=== PATIENT | male | born 1955 | race Caucasian/White ===

== ENCOUNTER → 2016-06-21 | Outpatient (CLI) | payer OTHER ==
[2016-06-21 11:20] LABS: ALT 150 U/L (21-72); AST 173 U/L (17-59); Alkaline Phosphatase 72 U/L (38-126); Anion Gap 14 mmol/L; Blood Urea Nitrogen 9 mg/dL (9-20); Calcium 9.7 mg/dL (8.4-10.2); Carbon Dioxide 23 mmol/L (22-30); Chloride 102 mmol/L (98-107); Glucose 135 mg/dL (74-99); Non-African American GFR(MDRD) >60 (>60 ml/min/1.73 sqM); Potassium 3.9 mmol/L (3.5-5.1); Sodium 139 mmol/L (137-145); Total Protein 8.5 g/dL (6.3-8.2)
[2016-06-22 13:38] LABS: Serum Amphetamine Negative; Serum Barbiturates Negative; Serum Benzodiazepine Negative; Serum Cocaine Negative; Serum Methadone Negative; Serum Opiates Negative; Serum Phencyclidine Negative; Serum Propoxyphene Negative; Serum THC (Cannabis) Negative
== END ==
LOC: LABWHC1 09:57
PROVIDERS: ATTEND Nurse Practitioner Psychiatric/Mental Health
DX: F25.1 Schizoaffective disorder, depressive type (principal)
CPT/HCPCS: 36415; 80053; 80307

== ENCOUNTER 2016-11-10 08:21 | Emergency (ER) | payer OTHER ==
[2016-11-10 08:27] VITALS: RESP 18
[2016-11-10] MEDS ORDERED: clonazePAM 0.5 MG TAB PO STA (08:42)
[2016-11-10] MEDS ORDERED: levETIRAcetam 250 MG TAB PO STA (08:42)
--- NOTE | 2016-11-10 08:45 | ED ---
General Adult HPI - General Chief complaint: Wound/Laceration Stated complaint: seizure,laceration Time Seen by Provider: 11/10/16 08:30 Source: patient, RN notes reviewed Mode of arrival: wheelchair Limitations: no limitations - History of Present Illness Initial comments: PAtient is a 61-year-old male with significant past medical history for seizures , who presents emergency room today with a chief complaint of seizure that occurred last approximate 8 PM. He does admit that he fell hit his head on a suturing causing laceration to the back. Does admit that he does have history of seizures tonic-clonic. States he was on medications Dilantin the past but did not like how it made him feel. States currently not taking any medication at this time. He does admit that he was on Keppra and Klonopin in the past which is on his medication list. States he has not been taking these any specific follow-up with his neurologist Dr. Tripp. Patient states his tetanus is up-to-date. He denies any other complaints or associated symptoms. Patient denies any recent fever, chills, shortness of breath, chest pain, back pain, abdominal pain, nausea or vomiting, numbness or tingling, dysuria or hematuria, constipation or diarrhea, headaches or visual changes, or any other complaints. - Related Data Home Medications Medication Instructions Recorded Confirmed Azelastine HCl [Optivar 0.05% 1 drop BOTH EYES BID 03/03/16 03/03/16 Ophth Soln] HYDROcodone/APAP 10-325MG [[place] 1 tab PO Q6H PRN 03/03/16 03/03/16 10-325] Loratadine [Claritin] 10 mg PO DAILY 03/03/16 03/03/16 Simvastatin [Zocor] 20 mg PO HS 03/03/16 03/03/16 Previous Rx's Medication Instructions Recorded Vitamin B Complex 1 each PO DAILY #30 capsule 03/05/16 clonazePAM [KlonoPIN] 0.5 mg PO BID #30 tablet 03/05/16 levETIRAcetam [Keppra] 750 mg PO Q12HR #180 tab 03/05/16 clonazePAM [KlonoPIN] 0.5 mg PO BID #20 tablet 11/10/16 levETIRAcetam [Keppra] 1 tab PO BID #20 tab 11/10/16 Allergies Allergy/AdvReac Type Severity Reaction Status Date / Time No Known Allergies Allergy Verified 11/10/16 08:28 Review of Systems ROS Statement: Those systems with pertinent positive or pertinent negative responses have been documented in the HPI. ROS Other: All systems not noted in ROS Statement are negative. Past Medical History Past Medical History: Hyperlipidemia, Seizure Disorder Additional Past Medical History / Comment(s): CHRONIC BACK PAIN. PATIENT NOT TAKING HIS MEDS (STATES HE DOES NOT NEED THEM). History of Any Multi-Drug Resistant Organisms: None Reported Past Surgical History: Hernia Repair Past Anesthesia/Blood Transfusion Reactions: No Reported Reaction Past Psychological History: No Psychological Hx Reported Smoking Status: Current every day smoker Past Alcohol Use History: Occasional Past Drug Use History: None Reported General Exam - General Exam Comments Initial Comments: General: The patient is awake and alert, in no distress, and does not appear acutely ill. Eye: Pupils are equal, round and reactive to light, extra-ocular movements are intact. No nystagmus. There is normal conjunctiva bilaterally. No signs of icterus. Ears, nose, mouth and throat: There are moist mucous membranes and no oral lesions. Neck: The neck is supple, there is no tenderness or JVD. Cardiovascular: There is a regular rate and rhythm. No murmur, rub or gallop is appreciated. Respiratory: Lungs are clear to auscultation, respirations are non-labored, breath sounds are equal. No wheezes, stridor, rales, or rhonchi. Gastrointestinal: Soft, non-distended, non-tender abdomen without masses or organomegaly noted. There is no rebound or guarding present. No CVA tenderness. Bowel sounds are unremarkable. Musculoskeletal: Normal ROM, no tenderness. Strength 5/5. Sensation intact. Pulses equal bilaterally 2+. Neurological: A&O x 3. CN II-XII intact, There are no obvious motor or sensory deficits. Coordination appears grossly intact. Speech is normal. Skin: Linear laceration running vertically to the back occipital area midline. No active bleeding. Psychiatric: Cooperative, appropriate mood & affect, normal judgment. Limitations: no limitations Course Vital Signs 11/10/16 08:22 Temperature 98.2 F Pulse Rate 99 Respiratory 18 Rate Blood Pressure 135/86 O2 Sat by Pulse 96 Oximetry Procedures - Procedures Initial comment: 2.5 cm laceration running linearly. The laceration was then cleansed with Betadine and irrigated with normal saline. The wound was inspected, and there was no evidence of injury to deep structures. No foreign body was noted in the wound. A total of 3 skin go were placed with good approximation. Medical Decision Making - Medical Decision Making CT negative. Patient's laceration clean) emergency room. Patient will be discharged home advised to return. Advised to return for any other concerns. Patient will be restarted on his doses of Her Klonopin given prescriptions to go home with. Advised follow-up with his neurologist. Disposition Clinical Impression: Laceration, Seizures Disposition: HOME SELF-CARE Condition: Good Instructions: Laceration (ED) Additional Instructions: 08-10 days to have go removed. Please keep area clean with soap and water. Please follow-up with your neurologist takes seizure medications as prescribed. Please also neurologist or family doctor over the next 2 days. Please return to emergency room if any symptoms increase or worsen or for any other concerns. Prescriptions: clonazePAM [KlonoPIN] 0.5 mg PO BID #20 tablet levETIRAcetam [Keppra] 1 tab PO BID #20 tab Referrals: Phuc Bo DO [Primary Care Provider] - 1-2 days Alexis Dejesus MD [STAFF PHYSICIAN] - 1-2 days Time of Disposition: 09:40
--- NOTE | 2016-11-10 09:35 | CT ---
EXAMINATION TYPE: CT brain marvin wo con DATE OF EXAM: 11/10/2016 COMPARISON: Previous CT scan of the brain dated 07/13/1711 HISTORY: Seizure, Laceration CT DLP: Brain 1127.71, Cervical 745.1 mGycm Automated exposure control for dose reduction was used. TECHNIQUE: CT scan of the head and cervical spine are performed without contrast. FINDINGS: BRAIN: There are mild, generalized changes of sulcal prominence and ventriculomegaly, compatible with mild atrophic change. Central structures are midline. There is no evidence of hydrocephalus. No acute focal lesion, mass ef fect or midline shift is seen. I do not see evidence of intracranial blood. Visualized portions of the paranasal sinuses and mastoids are clear. No depressed skull fracture is s een. The zygomatic arches are intact. No nasal fracture is seen. The pterygoid plates are intact. IMPRESSION: NO ACUTE INTRACRANIAL ABNORMALITY. CERVICAL SPINE: There is emphysematous change within the lungs. There is some shotty cervical adenopathy. Prevertebral soft tissues are otherwise normal. 2 body height and alignment are maintained. Atlantoaxial relationships are normal. There is minimal h ypertrophic spondylosis at C5-6 and C6-7. No acute fracture is seen. IMPRESSION: 1. NO ACUTE OSSEOUS LESION. 2. MILD DEGENERATIVE CHANGE. 3. EVIDENCE OF EMPHYSEMATOUS CHANGES WITHIN THE LUNGS.
[2016-11-10 10:08] VITALS: BP 116/71; PULSE 76; TEMP 97.1
== END 2016-11-10 10:08 | disposition home or self-care (01) ==
LOC: EC 08:21
DX: S01.01XA Laceration without foreign body of scalp, initial encounter (principal); G40.909 Epilepsy, unspecified, not intractable, without status epilepticus; E78.5 Hyperlipidemia, unspecified; F17.200 Nicotine dependence, unspecified, uncomplicated; Z79.899 Other long term (current) drug therapy; W01.10XA Fall on same level from slipping, tripping and stumbling with subsequent striking against unspecified object, initial encounter; Y93.01 Activity, walking, marching and hiking
CPT/HCPCS: 12001; 70450; 72125; 99284

== ENCOUNTER 2016-11-12 21:25 | Emergency (ER) | payer OTHER ==
[2016-11-12] MEDS ORDERED: LORazepam 2 MG/ML SYRINGE IM STA (22:13)
--- NOTE | 2016-11-12 22:32 | ED ---
General Adult HPI - General Chief complaint: Head Injury Stated complaint: revisit dizzy, med not working Time Seen by Provider: 11/12/16 21:50 Source: patient, RN notes reviewed Mode of arrival: ambulatory Limitations: no limitations - History of Present Illness Initial comments: This is a 61-year-old male presents who presents emergency department stating that he had a seizure 2 days ago because he was not taking any of his seizure medication. Patient states he sits take his medication today. Patient states he feels as though seizures about to occur. Patient states he hit his back of his head the other day and he had go placed in his head and patient is complaining of dizziness since this morning and states he has a headache. Patient denies any numbness weakness. Patient is unable to explain why he feels like to have a seizure but he states she is 2 months so he knows when they 're coming on. Patient states she's had this sensation since this morning and normally he just lays down and if it occurs it occurs as well as in bed. Patient is a very poor historian he cannot explain why he did not lay down today and he decided to come emergency department. Patient denies any chest pain or breathing shortness of breath. Patient denies any abdominal pain patient denies any recent fever chills or cough. Patient denies any seizure activity today. Patient denies any trauma today. - Related Data Home Medications Medication Instructions Recorded Confirmed Acamprosate Calcium [Campral] 666 mg PO TID 11/10/16 11/10/16 Ergocalciferol [Vitamin D2] 50,000 unit PO Q7D 11/10/16 11/10/16 Lisinopril [Zestril] 5 mg PO DAILY 11/10/16 11/10/16 Multivitamin [Men's Multi-Vitamin] 1 tab PO DAILY 11/10/16 11/10/16 QUEtiapine FUMARATE [Seroquel Xr] 300 mg PO HS 11/10/16 11/10/16 Sertraline [Zoloft] 100 mg PO DAILY 11/10/16 11/10/16 Theratears 1 drop BOTH EYES Q3H PRN 11/10/16 11/10/16 Previous Rx's Medication Instructions Recorded clonazePAM [KlonoPIN] 0.5 mg PO BID #20 tablet 11/10/16 levETIRAcetam [Keppra] 1 tab PO BID #20 tab 11/10/16 Allergies Allergy/AdvReac Type Severity Reaction Status Date / Time No Known Allergies Allergy Verified 11/12/16 21:51 Review of Systems ROS Statement: Those systems with pertinent positive or pertinent negative responses have been documented in the HPI. ROS Other: All systems not noted in ROS Statement are negative. Past Medical History Past Medical History: Hyperlipidemia, Seizure Disorder Additional Past Medical History / Comment(s): CHRONIC BACK PAIN. PATIENT NOT TAKING HIS MEDS (STATES HE DOES NOT NEED THEM). History of Any Multi-Drug Resistant Organisms: None Reported Past Surgical History: Hernia Repair Past Anesthesia/Blood Transfusion Reactions: No Reported Reaction Past Psychological History: No Psychological Hx Reported Smoking Status: Current every day smoker Past Alcohol Use History: Occasional Past Drug Use History: None Reported General Exam - General Exam Comments Initial Comments: GENERAL: Patient is well-developed and well-nourished. Patient is nontoxic and well- hydrated and is in no acute distress. ENT: Neck is soft and supple. No significant lymphadenopathy is noted. Oropharynx is clear. Moist mucous membranes. Neck has full range of motion without eliciting any pain. EYES: The sclera were anicteric and conjunctiva were pink and moist. Extraocular movements were intact and pupils were equal round and reactive to light. Eyelids were unremarkable. PULMONARY: Unlabored respirations. Good breath sounds bilaterally. No audible rales rhonchi or wheezing was noted. CARDIOVASCULAR: There is a regular rate and rhythm without any murmurs gallops or rubs. ABDOMEN: Soft and nontender with normal bowel sounds. No palpable organomegaly was noted. There is no palpable pulsatile mass. SKIN: Patient has a healing scalp LAC which has go. There does not appear to be any signs of infection. NEUROLOGIC: Patient is alert and oriented 2. I believe this is his baseline. Cranial nerves II through XII are grossly intact. Motor and sensory are also intact. Normal speech, volume and content. Symmetrical smile. MUSCULOSKELETAL: Normal extremities with adequate strength and full range of motion. LYMPHATICS: No significant lymphadenopathy is noted PSYCHIATRIC: Normal psychiatric evaluation. Limitations: no limitations Course Vital Signs 11/12/16 21:46 Temperature 98.8 F Pulse Rate 90 Respiratory 18 Rate Blood Pressure 128/87 O2 Sat by Pulse 98 Oximetry Medical Decision Making - Medical Decision Making CT of the head is negative After giving the patient Ativan he stated he felt considerably better and he was comfortable going home and following up with his doctor. Patient states she will start taking his Keppra regularly. Disposition Clinical Impression: History of head injury, History of seizure Disposition: HOME SELF-CARE Condition: Good Instructions: Head Injury (ED) Additional Instructions: Patient should start taking Keppra as prescribed Referrals: Estephania Shannon MD [Primary Care Provider] - 1-2 days Time of Disposition: 23:16
--- NOTE | 2016-11-12 23:06 | CT ---
Exam: CT HEAD Without Contrast History: Pain. Fall 2 days ago with headache. Comparison: None provided. Technique: Continuous axial images of the head were obtained without intravenous contrast. Coronal and sagittal reformatting was provided. Findings: No intracranial hemorrhage or mass effect. Ventricular system and sulci are symmetric. Partially imaged orbits and partially imaged paranasal sinuses are unremarkable. Impression: No intracranial hemorrhage or mass effect. CTDI vol = 60.30 mGy DLP = 1108.40 mGycm One or more of the following dose reduction techniques were used: automated exposure control, adjustment of the mA and/or kV according to patient size, use of iterative reconstruction technique.
[2016-11-12 23:30] VITALS: BP 110/63; PULSE 84; RESP 16; TEMP 97.9
== END 2016-11-12 23:30 | disposition home or self-care (01) ==
LOC: EC 21:25
DX: R42 Dizziness and giddiness (principal); S01.01XD Laceration without foreign body of scalp, subsequent encounter; G40.909 Epilepsy, unspecified, not intractable, without status epilepticus; E78.5 Hyperlipidemia, unspecified; F17.200 Nicotine dependence, unspecified, uncomplicated; Z79.899 Other long term (current) drug therapy
CPT/HCPCS: 99284; 96372; 70450; J2060

== ENCOUNTER → 2017-10-27 | Outpatient (CLI) | payer OTHER ==
[2017-10-27 17:52] LABS: Basophils % (A) 1 %; Eosinophils % (A) 0 %; HCT 41.3 % (39.0-53.0); HGB 13.7 gm/dL (13.0-17.5); Lymphocytes # (A) 1.8 k/uL (1.0-4.8); Lymphocytes % (A) 32 %; MCH 31.9 pg (25.0-35.0); MCHC 33.1 g/dL (31.0-37.0); MCV 96.3 fL (80.0-100.0); Mean Platelet Volume 6.5; Monocytes # (A) 0.5 k/uL (0-1.0); Monocytes % (A) 8 %; Neutrophils % (A) 55 %; Platelet Count 302 k/uL (150-450); RBC 4.29 m/uL (4.30-5.90); RDW 12.5 % (11.5-15.5); WBC 5.5 k/uL (3.8-10.6)
[2017-10-27 18:03] LABS: ALT 94 U/L (21-72); AST 142 U/L (17-59)
== END | disposition home or self-care (01) ==
LOC: LABWHC1 17:09
PROVIDERS: ATTEND Dermatology
DX: B35.1 Tinea unguium (principal)
CPT/HCPCS: 36415; 84450; 84460; 85025

== ENCOUNTER 2018-01-09 14:34 | Observation (INO) | payer OTHER ==
[2018-01-09 15:30] LABS: Basophils % (A) 1 %; Eosinophils % (A) 1 %; HCT 38.1 % (39.0-53.0); HGB 12.5 gm/dL (13.0-17.5); Lymphocytes # (A) 1.9 k/uL (1.0-4.8); Lymphocytes % (A) 44 %; MCH 31.7 pg (25.0-35.0); MCHC 32.7 g/dL (31.0-37.0); MCV 97.1 fL (80.0-100.0); Mean Platelet Volume 6.8; Monocytes # (A) 0.4 k/uL (0-1.0); Monocytes % (A) 10 %; Neutrophils # (A) 1.8 k/uL (1.3-7.7); Neutrophils % (A) 41 %; Platelet Count 209 k/uL (150-450); RBC 3.93 m/uL (4.30-5.90); RDW 11.9 % (11.5-15.5); WBC 4.3 k/uL (3.8-10.6)
[2018-01-09 15:34] LABS: ALT 67 U/L (21-72); AST 141 U/L (17-59); Albumin 4.2 g/dL (3.5-5.0); Alkaline Phosphatase 53 U/L (38-126); Anion Gap 16 mmol/L; Blood Urea Nitrogen 3 mg/dL (9-20); Calcium 9.2 mg/dL (8.4-10.2); Carbon Dioxide 20 mmol/L (22-30); Chloride 103 mmol/L (98-107); Glucose 113 mg/dL (74-99); Potassium 4.2 mmol/L (3.5-5.1); Sodium 139 mmol/L (137-145); Total Bilirubin 0.5 mg/dL (0.2-1.3); Total Protein 7.1 g/dL (6.3-8.2)
[2018-01-09 15:50] LABS: INR 1.3 (<1.2); Partial Thromboplastin Time 26.1 sec (22.0-30.0); Prothrombin Time 11.9 sec (9.0-12.0)
[2018-01-09 15:52] LABS: Creatine Kinase 104 U/L (55-170)
[2018-01-09 16:06] LABS: Creatine Kinase MB 0.9 ng/mL (0.0-2.4); Troponin I <0.012 ng/mL (0.000-0.034)
[2018-01-09] MEDS ORDERED: ASPIRIN 81 MG PO STA (17:37)
[2018-01-09] MEDS ORDERED: NITROGLYCERIN OINT 1 INCH/GM PACKET TOPICAL STA (17:37)
--- NOTE | 2018-01-09 17:39 | ED ---
General Adult HPI - General Chief complaint: Chest Pain Stated complaint: chest pain/numbness in left arm Time Seen by Provider: 01/09/18 17:00 Source: patient, RN notes reviewed Mode of arrival: wheelchair Limitations: no limitations - History of Present Illness Initial comments: Patient is a pleasant 62-year-old male presenting to the emergency Department with complaints of chest discomfort. Symptoms been going on for the past couple of days. Symptoms are not necessarily exertional. Discomfort is mild at this time. Discomfort feels like tightness without radiation however patient has had some numbness of the left arm. Patient has some mild associated dyspnea and diaphoresis. No nausea. No history of similar symptoms previously. No arm weakness. - Related Data Home Medications Medication Instructions Recorded Confirmed Acamprosate Calcium [Campral] 666 mg PO TID 11/10/16 11/10/16 Ergocalciferol [Vitamin D2] 50,000 unit PO Q7D 11/10/16 11/10/16 Lisinopril [Zestril] 5 mg PO DAILY 11/10/16 11/10/16 Multivitamin [Men's Multi-Vitamin] 1 tab PO DAILY 11/10/16 11/10/16 QUEtiapine FUMARATE [Seroquel Xr] 300 mg PO HS 11/10/16 11/10/16 Sertraline [Zoloft] 100 mg PO DAILY 11/10/16 11/10/16 Theratears 1 drop BOTH EYES Q3H PRN 11/10/16 11/10/16 Previous Rx's Medication Instructions Recorded clonazePAM [KlonoPIN] 0.5 mg PO BID #20 tablet 11/10/16 levETIRAcetam [Keppra] 1 tab PO BID #20 tab 11/10/16 Allergies Allergy/AdvReac Type Severity Reaction Status Date / Time No Known Allergies Allergy Verified 01/09/18 14:39 Review of Systems ROS Statement: Those systems with pertinent positive or pertinent negative responses have been documented in the HPI. ROS Other: All systems not noted in ROS Statement are negative. Constitutional: Denies: fever Eyes: Denies: eye pain ENT: Denies: ear pain Respiratory: Denies: cough Cardiovascular: Reports: chest pain Endocrine: Denies: fatigue Gastrointestinal: Denies: abdominal pain Genitourinary: Denies: dysuria Musculoskeletal: Denies: back pain Skin: Denies: rash Neurological: Denies: weakness Past Medical History Past Medical History: Hyperlipidemia, Seizure Disorder Additional Past Medical History / Comment(s): CHRONIC BACK PAIN. PATIENT NOT TAKING HIS MEDS (STATES HE DOES NOT NEED THEM). History of Any Multi-Drug Resistant Organisms: None Reported Past Surgical History: Hernia Repair Past Anesthesia/Blood Transfusion Reactions: No Reported Reaction Past Psychological History: No Psychological Hx Reported Smoking Status: Current every day smoker Past Alcohol Use History: Daily Past Drug Use History: None Reported General Exam Limitations: no limitations General appearance: alert, in no apparent distress Head exam: Present: atraumatic Eye exam: Present: normal appearance, PERRL ENT exam: Present: normal oropharynx Neck exam: Present: normal inspection Respiratory exam: Present: normal lung sounds bilaterally Cardiovascular Exam: Present: regular rate, normal rhythm Expanded Peripheral pulses: 2+: Radial (R), Radial (L), Dorsalis Pedis (R), Dorsalis Pedis (L) GI/Abdominal exam: Present: soft. Absent: tenderness Extremities exam: Present: normal inspection. Absent: pedal edema, calf tenderness Neurological exam: Present: alert. Absent: motor sensory deficit Expanded Motor strength exam: RUE: 5, LUE: 5 Psychiatric exam: Present: normal affect, normal mood Skin exam: Present: normal color Course Vital Signs 01/09/18 01/09/18 14:37 17:27 Temperature 98.2 F Pulse Rate 88 68 Respiratory 20 18 Rate Blood Pressure 146/86 127/71 O2 Sat by Pulse 98 100 Oximetry EKG Findings - EKG Comments: EKG Findings:: Normal sinus rhythm 80. TN 164. QRS 102. QT 376. QTc 433. Right axis. Normal QRS. No acute ST change. Medical Decision Making - Medical Decision Making Case was discussed with Dr. Gale, who will admit for hospital call. Patient was aware of plan. - Lab Data Result diagrams: 01/09/18 14:56 01/09/18 14:56 Lab Results 01/09/18 01/09/18 01/09/18 Range/Units 14:56 14:56 14:56 WBC 4.3 (3.8-10.6) k/uL RBC 3.93 L (4.30-5.90) m/uL Hgb 12.5 L (13.0-17.5) gm/dL Hct 38.1 L (39.0-53.0) % MCV 97.1 (80.0-100.0) fL MCH 31.7 (25.0-35.0) pg MCHC 32.7 (31.0-37.0) g/dL RDW 11.9 (11.5-15.5) % Plt Count 209 (150-450) k/uL Neutrophils % 41 % Lymphocytes % 44 % Monocytes % 10 % Eosinophils % 1 % Basophils % 1 % Neutrophils # 1.8 (1.3-7.7) k/uL Lymphocytes # 1.9 (1.0-4.8) k/uL Monocytes # 0.4 (0-1.0) k/uL Eosinophils # 0.0 (0-0.7) k/uL Basophils # 0.0 (0-0.2) k/uL PT (9.0-12.0) sec INR (<1.2) APTT (22.0-30.0) sec Sodium 139 (137-145) mmol/L Potassium 4.2 (3.5-5.1) mmol/L Chloride 103 (98-107) mmol/L Carbon Dioxide 20 L (22-30) mmol/L Anion Gap 16 mmol/L BUN 3 L (9-20) mg/dL Creatinine 0.55 L (0.66-1.25) mg/dL Est GFR (CKD-EPI)AfAm >90 (>60 ml/min/1.73 sqM) Est GFR (CKD-EPI)NonAf >90 (>60 ml/min/1.73 sqM) Glucose 113 H (74-99) mg/dL Calcium 9.2 (8.4-10.2) mg/dL Magnesium (1.6-2.3) mg/dL Total Bilirubin 0.5 (0.2-1.3) mg/dL AST 141 H (17-59) U/L ALT 67 (21-72) U/L Alkaline Phosphatase 53 (38-126) U/L Total Creatine Kinase 104 (55-170) U/L CK-MB (CK-2) 0.9 (0.0-2.4) ng/mL CK-MB (CK-2) Rel Index 0.9 Troponin I <0.012 (0.000-0.034) ng/mL Total Protein 7.1 (6.3-8.2) g/dL Albumin 4.2 (3.5-5.0) g/dL 01/09/18 01/09/18 Range/Units 14:56 14:56 WBC (3.8-10.6) k/uL RBC (4.30-5.90) m/uL Hgb (13.0-17.5) gm/dL Hct (39.0-53.0) % MCV (80.0-100.0) fL MCH (25.0-35.0) pg MCHC (31.0-37.0) g/dL RDW (11.5-15.5) % Plt Count (150-450) k/uL Neutrophils % % Lymphocytes % % Monocytes % % Eosinophils % % Basophils % % Neutrophils # (1.3-7.7) k/uL Lymphocytes # (1.0-4.8) k/uL Monocytes # (0-1.0) k/uL Eosinophils # (0-0.7) k/uL Basophils # (0-0.2) k/uL PT 11.9 (9.0-12.0) sec INR 1.3 H (<1.2) APTT 26.1 (22.0-30.0) sec Sodium (137-145) mmol/L Potassium (3.5-5.1) mmol/L Chloride (98-107) mmol/L Carbon Dioxide (22-30) mmol/L Anion Gap mmol/L BUN (9-20) mg/dL Creatinine (0.66-1.25) mg/dL Est GFR (CKD-EPI)AfAm (>60 ml/min/1.73 sqM) Est GFR (CKD-EPI)NonAf (>60 ml/min/1.73 sqM) Glucose (74-99) mg/dL Calcium (8.4-10.2) mg/dL Magnesium 1.5 L (1.6-2.3) mg/dL Total Bilirubin (0.2-1.3) mg/dL AST (17-59) U/L ALT (21-72) U/L Alkaline Phosphatase (38-126) U/L Total Creatine Kinase (55-170) U/L CK-MB (CK-2) (0.0-2.4) ng/mL CK-MB (CK-2) Rel Index Troponin I (0.000-0.034) ng/mL Total Protein (6.3-8.2) g/dL Albumin (3.5-5.0) g/dL - Radiology Data Interpreted by me: Chest x-ray shows no acute process. There does appear to be possible nodule right lower lobe Disposition Clinical Impression: Chest pain Disposition: ADMITTED IP TO THIS HOSP Is patient prescribed a controlled substance at d/c from ED?: No [facility]errals: [facility] [Primary Care Provider] - 1-2 days Decision Time: 18:28
[2018-01-09] MEDS ORDERED: NITROGLYCERIN SL TABS 0.4 MG TAB SUBLINGUAL PRN (18:28)
--- NOTE | 2018-01-09 19:08 | XR ---
EXAMINATION: XR chest 2V DATE AND TIME: 01/09/2018 5:52 PM CLINICAL INDICATION: Chest Pain TECHNIQUE: PA and lateral COMPARISON: 09/12/2009 FINDINGS: The lungs are clear. 1 cm calcification at the right lung base redemonstrated consistent with healed granuloma. The pleural spaces are negative. The cardiac silhouette is not enlarged. The remainder of the mediastinal silhouette is unremarkable. The skeletal structures and soft tissues are negative for acute findings. IMPRESSION: NO ACUTE RADIOGRAPHIC PROCESS.
[2018-01-09] MEDS ORDERED: QUEtiapine 200 MG TAB PO SCH (21:00)
[2018-01-09] MEDS ORDERED: SERTRALINE 100 MG TAB PO SCH (21:00)
[2018-01-09] MEDS ORDERED: ACETAMINOPHEN TAB 325 MG TAB PO PRN (21:46)
[2018-01-09] MEDS ORDERED: NALOXONE 0.4 MG/ML 1 ML VIAL IV PRN (21:46)
[2018-01-09 21:58] LABS: Creatine Kinase 93 U/L (55-170)
[2018-01-09] MEDS ORDERED: DIGOXIN 250 MCG/ML 2 ML AMP IVP ONE (22:07)
[2018-01-09 22:11] LABS: Creatine Kinase MB 1.5 ng/mL (0.0-2.4); Troponin I <0.012 ng/mL (0.000-0.034)
[2018-01-09] MEDS ORDERED: LORazepam 2 MG/ML INJ IV PRN ×3 (22:12)
--- NOTE | 2018-01-09 22:23 | P.HPIM ---
History of Present Illness H&P Date: 01/09/18 Chief Complaint: Chest pain Patient appears tired during his H&P. Patient appears demotivated to answer questions at this time. 62-year-old male with PMH of schizophrenia and SZ disorder presents to the ED for chest pain. Patient states his chest pain began yesterday as he was cleaning the house. Patient reports the pain to be intermittent, 5 out of 10 in severity, left-sided and sharp in nature. His chest pain was associated with lightheadedness, shortness of breath, diaphoresis and palpitations. He denies any radiation of pain. He denied any alleviating or aggravating factors. His chest pain persisted until today, which prompted him to come to the ED. He denies any headache, lower extremity edema, nausea, vomiting, fever , cough, palpitations, changes in urination or bowel habits. No changes in appetite or weight. He denies any numbness, weakness or tingling of the extremities. Of note, patient has a history of seizures, last seizure was one month ago, patient reports taking himself off of medication. In the ED, CBC showed hemoglobin of 12.5 and hematocrit of 30.1. His INR is 1.3. CMP shows a bicarbonate of 20, glucose of 113, magnesium of 1.5, AST of 141. Initial troponin was less than 0.012, EKG showing normal sinus rhythm. Chest x-ray was negative. Patient is admitted to rule out acute coronary syndrome. Cardiology on consult. Review of Systems All systems: negative Past Medical History Past Medical History: Hyperlipidemia, Seizure Disorder Additional Past Medical History / Comment(s): CHRONIC BACK PAIN. 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 History of Any Multi-Drug Resistant Organisms: None Reported Past Surgical History: Hernia Repair Past Anesthesia/Blood Transfusion Reactions: No Reported Reaction Smoking Status: Current every day smoker - Past Family History Mother Family Medical History: No Reported History Father Family Medical History: No Reported History Medications and Allergies Home Medications Medication Instructions Recorded Confirmed Type Ergocalciferol [Vitamin D2] 50,000 unit PO Q14D 11/10/16 01/09/18 History Multivitamin [Men's Multi-Vitamin] 1 tab PO DAILY 11/10/16 01/09/18 History Sertraline [Zoloft] 100 mg PO HS 11/10/16 01/09/18 History Theratears 1 drop BOTH EYES Q3H PRN 11/10/16 01/09/18 History Eucerin Cream 1 applic TOPICAL DAILY 01/09/18 01/09/18 History Lisinopril [Prinivil] 10 mg PO DAILY 01/09/18 01/09/18 History Magnesium Oxide [Mag-Ox] 400 mg PO DAILY 01/09/18 01/09/18 History Ondansetron HCl [Zofran] 4 mg PO DAILY PRN 01/09/18 01/09/18 History QUEtiapine FUMARATE [SEROquel] 600 mg PO HS 01/09/18 01/09/18 History Allergies Allergy/AdvReac Type Severity Reaction Status Date / Time No Known Allergies Allergy Verified 01/09/18 18:35 Physical Exam Vitals: Vital Signs Temp Pulse Pulse Resp BP BP Pulse Ox 01/09/18 20:28 98.1 F 68 16 136/73 98 01/09/18 20:12 98.0 F 66 16 112/68 96 01/09/18 20:00 16 01/09/18 17:27 68 18 127/71 100 01/09/18 14:37 98.2 F 88 20 146/86 98 Intake and Output 01/09/18 01/09/18 01/09/18 06:59 14:59 22:59 Other: Voiding Method Toilet Weight 67.132 kg 67 kg General: [non toxic], [no distress], [appears at stated age], [uncooperative with questions giving one-word answers] Derm: [warm], [dry] Head: [atraumatic], [normocephalic], [symmetric] Eyes: [EOMI], [no lid lag], [anicteric sclera] Mouth: [no lip lesion], [mucus membranes moist] Cardiovascular: [S1S2 reg], [no murmur], [positive posterior tibial pulse bilateral], Lungs: [CTA bilateral], [no rhonchi, no rales] , [no accessory muscle use] Abdominal: [soft], [ nontender to palpation], [no guarding], [no appreciable organomegaly] Ext: [no gross muscle atrophy], [no edema], [no contractures] Psych: [Alert], [oriented], [appropriate affect] Results CBC & Chem 7: 01/09/18 14:56 01/09/18 14:56 Labs: Abnormal Lab Results - Last 24 Hours (Table) 01/09/18 01/09/18 01/09/18 Range/Units 14:56 14:56 14:56 RBC 3.93 L (4.30-5.90) m/uL Hgb 12.5 L (13.0-17.5) gm/dL Hct 38.1 L (39.0-53.0) % INR 1.3 H (<1.2) Carbon Dioxide 20 L (22-30) mmol/L BUN 3 L (9-20) mg/dL Creatinine 0.55 L (0.66-1.25) mg/dL Glucose 113 H (74-99) mg/dL Magnesium (1.6-2.3) mg/dL AST 141 H (17-59) U/L 01/09/18 Range/Units 14:56 RBC (4.30-5.90) m/uL Hgb (13.0-17.5) gm/dL Hct (39.0-53.0) % INR (<1.2) Carbon Dioxide (22-30) mmol/L BUN (9-20) mg/dL Creatinine (0.66-1.25) mg/dL Glucose (74-99) mg/dL Magnesium 1.5 L (1.6-2.3) mg/dL AST (17-59) U/L Chest x-ray: report reviewed (negative for acute process) Thrombosis Risk Factor Assmnt - DVT/VTE Prophylaxis DVT/VTE Prophylaxis: Pharmacologic Prophylaxis ordered - Choose All That Apply Any of the Below Risk Factors Present?: Yes Each Factor Represents 1 point: Age 41-60 years Thrombosis Risk Factor Assessment Total Risk Factor Score: 1 Thrombosis Risk Factor Assessment Level: Low Risk Assessment and Plan Assessment: Assessment and Plan 1. Chest pain: Unreliable history. Troponin < 0.012 x 1, EKG shows NSR. CXR negative. Tylenol and Nitrostat PRN for pain management. Continue ASA 81 mg PO QD. Trend 2 more sets of Trop/EKG to r/o ACS. FU Echo, Cardiology 2. SVT: Seen on Telemetry when walking to the bathroom. Possibly due to EtOH and hypoMg. Will replace Mg. Keep Mg > 2 and K > 4. Transfer patient to [facility] for Digoxin IV. FU Echo, TSH, Cardiology consult 3. EtOH abuse: Patient denies but previous reports and smell of EtOH per RN. CIAR protocol. Ativan 2 mg IV Q4 PRN for CIWA > 8. Start Thiamine 100 mg PO BID , MVI 1 tab PO QD, FA 1 mg PO QD. Fall precautions. 4. Anemia: Hg 12.5 Hct 38.1 MCV 97.1. Macrocytosis likely related to EtOH abuse. Daily CBC. FU Iron studies, Ferritin, B12 and Folate. 5. Supratherapeutic INR: INR 1.3. Likely related to EtOH abuse. Daily INR. 6. Elevated transaminase: AST 141. Likely related to EtOH abuse. Daily CMP. 7. Decreased HCO3: HCO3 20. Likely metabolic acidosis related to EtOH abuse. Daily CMP. 8. HTN: BP 136/73. Continue Lisinopril 10 mg PO QD. Monitor vitals, adjust medication as necessary. 9. Psyc: Schizophrenia and Depression? Unknown, patient unreliable. Continue Seroquel 600 mg PO QHS, Sertraline 100 mg PO QHS. 10. DVT Prophylaxis: Heparin 5000 units SUBCUT BID. Pepcid 20 mg PO BID. Plans to r/o ACS. Patient to move to [facility] for SVT for closer monitoring and IV Digoxin. [facility] protocol for EtOH abuse. FU Cardiology for further intervention.
[2018-01-09 22:28] LABS: Cholesterol 267 mg/dL (<200); Triglycerides 110 mg/dL (<150)
[2018-01-09 22:35] LABS: LDL Cholesterol,Calculated 105 mg/dL (0-99)
[2018-01-09 22:36] LABS: HDL Cholesterol 140 mg/dL (40-60)
[2018-01-09] MEDS: THIAMINE 100 MG TAB PO SCH (22:38)
[2018-01-09] MEDS: METOPROLOL SUCCINATE (ER) 25 MG TAB.ER.24H PO SCH (22:50)
[2018-01-09] MEDS: MAGNESIUM SULFATE-D5W PMX 1 GM in DEXTROSE/WATER 1 100ML.BAG IVPB SCH ×2 (22:51→23:57)
[2018-01-09 23:32] VITALS: RESP 16
[2018-01-10] MEDS: NITROGLYCERIN OINT 1 INCH/GM PACKET TOPICAL SCH ×2 (00:19→05:16)
[2018-01-10] MEDS: MAGNESIUM SULFATE-D5W PMX 1 GM in DEXTROSE/WATER 1 100ML.BAG IVPB SCH ×2 (01:01→02:05)
[2018-01-10 02:48] LABS: Basophils % (A) 1 %; Eosinophils # (A) 0.1 k/uL (0-0.7); Eosinophils % (A) 3 %; HCT 36.4 % (39.0-53.0); HGB 11.9 gm/dL (13.0-17.5); Lymphocytes # (A) 1.5 k/uL (1.0-4.8); Lymphocytes % (A) 44 %; MCH 32.2 pg (25.0-35.0); MCHC 32.7 g/dL (31.0-37.0); MCV 98.6 fL (80.0-100.0); Mean Platelet Volume 6.8; Monocytes # (A) 0.2 k/uL (0-1.0); Monocytes % (A) 6 %; Neutrophils # (A) 1.5 k/uL (1.3-7.7); Neutrophils % (A) 45 %; Platelet Count 176 k/uL (150-450); RBC 3.69 m/uL (4.30-5.90); RDW 11.9 % (11.5-15.5); WBC 3.4 k/uL (3.8-10.6)
[2018-01-10 02:54] LABS: INR 1.3 (<1.2); Prothrombin Time 12.3 sec (9.0-12.0)
[2018-01-10 02:58] LABS: ALT 61 U/L (21-72); AST 111 U/L (17-59); Albumin 3.8 g/dL (3.5-5.0); Alkaline Phosphatase 61 U/L (38-126); Anion Gap 12 mmol/L; Blood Urea Nitrogen 7 mg/dL (9-20); Calcium 9.1 mg/dL (8.4-10.2); Carbon Dioxide 23 mmol/L (22-30); Chloride 105 mmol/L (98-107); Glucose 100 mg/dL (74-99); Magnesium 2.3 mg/dL (1.6-2.3); Potassium 3.9 mmol/L (3.5-5.1); Sodium 140 mmol/L (137-145); Total Bilirubin 0.3 mg/dL (0.2-1.3); Total Protein 6.5 g/dL (6.3-8.2)
[2018-01-10 03:01] LABS: Creatine Kinase 82 U/L (55-170)
[2018-01-10 03:14] LABS: Creatine Kinase MB 0.7 ng/mL (0.0-2.4); Troponin I <0.012 ng/mL (0.000-0.034)
[2018-01-10 03:58] LABS: T4, Free (Free Thyroxine) 0.83 ng/dL (0.78-2.19)
[2018-01-10] MEDS ORDERED: ASPIRIN 325 MG TAB PO SCH (09:00)
[2018-01-10] MEDS ORDERED: FAMOTIDINE 20 MG TAB PO SCH (09:00)
[2018-01-10] MEDS ORDERED: HEPARIN SODIUM,PORCINE 5,000 UNIT/ML 1 ML VIAL SQ SCH (09:00)
[2018-01-10] MEDS ORDERED: LISINOPRIL 10 MG TAB PO SCH (09:00)
--- NOTE | 2018-01-10 10:33 | ECHOF ---
Referral Reason:SVT, CP MEASUREMENTS -------- HEIGHT: 167.6 cm WEIGHT: 66.7 kg BP: 120/68 RVIDd: 2.7 cm (< 3.3) IVSd: 1.2 cm (0.6 - 1.1) LVIDd: 3.9 cm (3.9 - 5.3) LVPWd: 1.2 cm (0.6 - 1.1) IVSs: 1.7 cm LVIDs: 2.6 cm LVPWs: 1.7 cm LA Diam: 2.9 cm (2.7 - 3.8) LAESV Index (A-L): 23.08 ml/m Ao Diam: 3.4 cm (2.0 - 3.7) AV Cusp: 2.5 cm (1.5 - 2.6) MV EXCURSION: 20.304 mm (> 18.000) MV EF SLOPE: 130 mm/s (70 - 150) EPSS: 0.4 cm MV E Yovany: 0.77 m/s MV DecT: 196 ms MV A Yovany: 0.72 m/s MV E/A Ratio: 1.08 RAP: 5.00 mmHg RVSP: 22.12 mmHg FINDINGS -------- Sinus rhythm. This was a technically good study. The left ventricular size is normal. There is borderline concentric left ventricular hypertrophy. Overall left ventricular systolic function is normal with, an EF between 55 - 60 %. The right ventricle is normal in size. Normal LA size by volume 22+/-6 ml/m2. The right atrium is normal in size. The aortic valve is trileaflet and appears structurally normal. There is trace to mild mitral regurgitation. Mild tricuspid regurgitation present. Right ventricular systolic pressure is normal at < 35 mmHg. Trace/mild (physiologic) pulmonic regurgitation. The aortic root size is normal. Normal inferior vena cava with normal inspiratory collapse consistent with estimated right atrial pre ssure of 5 mmHg. There is no pericardial effusion. CONCLUSIONS -------- 1. Sinus rhythm. 2. This was a technically good study. 3. The left ventricular size is normal. 4. There is borderline concentric left ventricular hypertrophy. 5. Overall left ventricular systolic function is normal with, an EF between 55 - 60 %. 6. The right ventricle is normal in size. 7. Normal LA size by volume 22+/-6 ml/m2. 8. The right atrium is normal in size. 9. The aortic valve is trileaflet and appears structurally normal. 10. There is trace to mild mitral regurgitation. 11. Mild tricuspid regurgitation present. 12. Right ventricular systolic pressure is normal at < 35 mmHg. 13. Trace/mild (physiologic) pulmonic regurgitation. 14. The aortic root size is normal. 15. Normal inferior vena cava with normal inspiratory collapse consistent with estimated right atrial pressure of 5 mmHg. 16. There is no pericardial effusion. PICKER TENDER: Keesha Fleming RDCS
[2018-01-10] MEDS: THIAMINE 100 MG TAB PO SCH (10:41)
[2018-01-10] MEDS: METOPROLOL SUCCINATE (ER) 25 MG TAB.ER.24H PO SCH (10:41)
[2018-01-10 11:13] VITALS: BP 154/82; PULSE 77; TEMP 98.7
[2018-01-10] MEDS ORDERED: MULTIVITAMINS, THERA 1 EACH TAB PO SCH (12:00)
[2018-01-10] MEDS ORDERED: FOLIC ACID 1 MG TAB PO SCH (12:00)
--- NOTE | 2018-01-10 12:00 | P.CRDCN ---
History of Present Illness History of present illness: Mr. Echavarria is a pleasant 62-year-old female past medical history significant for dyslipidemia, chronic nicotine dependence, alcohol use and seizure disorder. He denies history of coronary artery disease, hypertension or diabetes mellitus. We have been asked to see her in consultation for chest pain. He developed a sharp stabbing pain in the left precordial region while he was sitting down watching a movie. The pain radiated around under the breast. He felt mildly lightheaded as well. His left hand felt tingly. He denies radiation of the pain to the arm, back, neck or jaw. Denies shortness of breath , palpitations, nausea, vomiting or diaphoresis. Last night around 2200 he went into what appears to be sinus tachycardia with rate of 150-160, rhythm was regular with P-waves noted before each narrow complex QRS. He does not recall this episode. Orders were obtained for digoxin 0.25 mg and toprol 25 mg He denies having symptoms of palpitations, dizziness, chest pain or shortness of breath at that time. No further arrhythmias noted. EKG on arrival reveals sinus mechanism with no acute ST or T wave abnormalities noted. Chest x-ray is negative for an acute cardiopulmonary process. Laboratory data reviewed, hemoglobin 11.9, platelets 176, INR 1.3, sodium 140, potassium 3.9, magnesium 2.3, cardiac enzymes negative 3, LDL 105, HDL 140, triglycerides 1 time a total cholesterol 267, TSH 5.96 and free T4 0.83. Current cardiac medications include lisinopril 10 mg daily. He also takes Zoloft and Seroquel. Review of Systems At the time of my exam: CONSTITUTIONAL: Denies fever. Denies chills. EYES: Denies blurred vision. Denies vision changes. Denies eye pain. EARS, NOSE, MOUTH & THROAT: Denies headache. Denies sore throat. Denies ear pain. CARDIOVASCULAR: Denies chest pain. Denies shortness of breath. Denies orthopnea. Denies PND. Denies palpitations. RESPIRATORY: Denies cough. GASTROINTESTINAL: Denies abdominal pain. Denies diarrhea. Denies constipation. Denies nausea. Denies vomiting. MUSCULOSKELETAL: Denies myalgias. INTEGUMENTARY: Denies pruitis. Denies rash. NEUROLOGIC: Denies numbness. Denies tingling. Denies weakness. PSYCHIATRIC: Denies anxiety. Denies depression. ENDOCRINE: Denies fatigue. Denies weight change. Denies polydipsia. Denies polyurina. GENITOURINARY: Denies burning, hematuria or urgency with micturation. HEMATOLOGIC: Denies history of anemia. Denies bleeding. Past Medical History Past Medical History: Hyperlipidemia, Seizure Disorder Additional Past Medical History / Comment(s): CHRONIC BACK PAIN. 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 History of Any Multi-Drug Resistant Organisms: None Reported Past Surgical History: Hernia Repair Past Anesthesia/Blood Transfusion Reactions: No Reported Reaction Smoking Status: Current every day smoker - Past Family History Mother Family Medical History: No Reported History Father Family Medical History: No Reported History Medications and Allergies Home Medications Medication Instructions Recorded Confirmed Type Ergocalciferol [Vitamin D2] 50,000 unit PO Q14D 11/10/16 01/09/18 History Multivitamin [Men's Multi-Vitamin] 1 tab PO DAILY 11/10/16 01/09/18 History Sertraline [Zoloft] 100 mg PO HS 11/10/16 01/09/18 History Theratears 1 drop BOTH EYES Q3H PRN 11/10/16 01/09/18 History Eucerin Cream 1 applic TOPICAL DAILY 01/09/18 01/09/18 History Lisinopril [Prinivil] 10 mg PO DAILY 01/09/18 01/09/18 History Magnesium Oxide [Mag-Ox] 400 mg PO DAILY 01/09/18 01/09/18 History Ondansetron HCl [Zofran] 4 mg PO DAILY PRN 01/09/18 01/09/18 History QUEtiapine FUMARATE [SEROquel] 600 mg PO HS 01/09/18 01/09/18 History Allergies Allergy/AdvReac Type Severity Reaction Status Date / Time No Known Allergies Allergy Verified 01/09/18 18:35 Physical Exam Vitals: Vital Signs Temp Pulse Pulse Resp BP BP Pulse Ox 01/10/18 07:47 98.6 F 71 16 116/69 99 01/10/18 04:00 16 01/10/18 02:59 98.7 F 79 16 120/68 98 01/10/18 00:00 16 01/09/18 23:30 98.1 F 129 H 16 107/63 94 L 01/09/18 22:45 123 H 18 111/71 97 01/09/18 22:10 123 H 18 103/63 96 01/09/18 22:00 112 H 18 88/53 96 01/09/18 20:28 98.1 F 68 16 136/73 98 01/09/18 20:12 98.0 F 66 16 112/68 96 01/09/18 20:00 16 01/09/18 17:27 68 18 127/71 100 01/09/18 14:37 98.2 F 88 20 146/86 98 Intake and Output 01/09/18 01/10/18 01/10/18 22:59 06:59 14:59 Other: Voiding Method Toilet Urinal # Voids 2 Weight 67 kg Blood pressure 120/68 heart rate 79 afebrile maintaining oxygen saturation on room air GENERAL: This is a 62-year-old male in no apparent distress at the time of my examination. HEENT: Head is atraumatic, normocephalic. Pupils are equal, round. Sclerae anicteric. Conjunctivae are clear. Mucous membranes of the mouth are moist. Neck is supple. There is no jugular venous distention. No carotid bruit is heard. LUNGS: Clear to auscultation no wheezes, rales or rhonchi. No chest wall tenderness is noted on palpation or with deep breathing. HEART: Regular rate and rhythm without murmurs, rubs or gallops. S1 and S2 heard. ABDOMEN: Soft, nontender. Bowel sounds are heard. No organomegaly noted. EXTREMITIES: No evidence of peripheral edema and no calf tenderness noted. VASCULAR: Radial and dorsalis pedis pulses palpated, no evidence of clubbing. NEUROLOGIC: Patient is awake, alert and oriented x3. Results 01/10/18 02:27 01/10/18 02:27 Cardiac Enzymes 01/09/18 01/09/18 01/09/18 Range/Units 14:56 14:56 21:20 AST 141 H (17-59) U/L CK-MB (CK-2) 0.9 1.5 (0.0-2.4) ng/mL Troponin I <0.012 <0.012 (0.000-0.034) ng/mL 01/10/18 01/10/18 Range/Units 02:27 02:27 AST 111 H (17-59) U/L CK-MB (CK-2) 0.7 (0.0-2.4) ng/mL Troponin I <0.012 (0.000-0.034) ng/mL Coagulation 01/09/18 01/10/18 Range/Units 14:56 02:27 PT 11.9 12.3 H (9.0-12.0) sec APTT 26.1 (22.0-30.0) sec Lipids 01/09/18 01/10/18 Range/Units 14:56 02:27 Triglycerides 110 Cancelled (<150) mg/dL Cholesterol 267 H Cancelled (<200) mg/dL HDL Cholesterol 140 H Cancelled (40-60) mg/dL CBC 01/09/18 01/10/18 Range/Units 14:56 02:27 WBC 4.3 3.4 L (3.8-10.6) k/uL RBC 3.93 L 3.69 L (4.30-5.90) m/uL Hgb 12.5 L 11.9 L (13.0-17.5) gm/dL Hct 38.1 L 36.4 L (39.0-53.0) % Plt Count 209 176 (150-450) k/uL Comprehensive Metabolic Panel 01/09/18 01/10/18 Range/Units 14:56 02:27 Sodium 139 140 (137-145) mmol/L Potassium 4.2 3.9 (3.5-5.1) mmol/L Chloride 103 105 (98-107) mmol/L Carbon Dioxide 20 L 23 (22-30) mmol/L BUN 3 L 7 L (9-20) mg/dL Creatinine 0.55 L 0.57 L (0.66-1.25) mg/dL Glucose 113 H 100 H (74-99) mg/dL Calcium 9.2 9.1 (8.4-10.2) mg/dL AST 141 H 111 H (17-59) U/L ALT 67 61 (21-72) U/L Alkaline Phosphatase 53 61 (38-126) U/L Total Protein 7.1 6.5 (6.3-8.2) g/dL Albumin 4.2 3.8 (3.5-5.0) g/dL Current Medications Generic Name Dose Route Start Last Admin Trade Name Freq PRN Reason Stop Dose Admin Acetaminophen 650 mg 01/09/18 21:46 Tylenol Tab PO Q6HR PRN Mild Pain or Fever > 100.5 Aspirin 325 mg 01/10/18 09:00 Aspirin PO DAILY [facility] Famotidine 20 mg 01/10/18 09:00 Pepcid PO BID [facility] Folic Acid 1 mg 01/10/18 12:00 Folic Acid PO DAILY@1200 [facility] Heparin Sodium (Porcine) 5,000 unit 01/10/18 09:00 Heparin SQ Q12HR [facility] Lisinopril 10 mg 01/10/18 09:00 Zestril PO DAILY [facility] Lorazepam 1 mg 01/09/18 22:12 Ativan IV Q2HR PRN CIWA 8 or 9 Lorazepam 1 mg 01/09/18 22:12 Ativan IV Q1HR PRN CIWA 10 to 15 Lorazepam 2 mg 01/09/18 22:12 Ativan IV 01/11/18 22:12 Q10M PRN CIWA 16 or higher Metoprolol Succinate 25 mg 01/09/18 22:15 01/09/18 22:50 Toprol Xl PO 25 mg DAILY [facility] Administration Multivitamins 1 each 01/10/18 12:00 Theragran PO DAILY@1200 [facility] Naloxone HCl 0.2 mg 01/09/18 21:46 Narcan IV Q2M PRN Opioid Reversal Nitroglycerin 1 inch 01/10/18 00:00 01/10/18 05:16 Nitro-Bid Oint TOPICAL Not Given Q6HR [facility] Nitroglycerin 0.4 mg 01/09/18 18:28 Nitrostat SUBLINGUAL Q5M PRN Chest Pain Quetiapine Fumarate 600 mg 01/09/18 21:00 01/09/18 21:00 Seroquel PO 600 mg HS IFTIKHAR Administration Sertraline HCl 100 mg 01/09/18 21:00 01/09/18 21:00 Zoloft PO 100 mg HS IFTIKHAR Administration Sodium Chloride 10 ml 01/09/18 21:00 01/09/18 21:01 Saline Flush IV 10 ml BID IFTIKHAR Administration Thiamine HCl 100 mg 01/09/18 17:00 01/09/18 22:38 Vitamin B-1 PO 100 mg BID@1200,1700 [facility] Administration Intake and Output 09/17/18 09/18/18 09/18/18 22:59 06:59 14:59 Other: Voiding Method Toilet Urinal # Voids 2 Weight 67 kg 01/10/18 02:27 01/10/18 02:27 Assessment and Plan Assessment: ASSESSMENT Chest pain, atypical. An acute coronary event has been ruled out no EKG evidence of ischemia and negative cardiac enzymes. Sinus tachycardia, unknown etiology Hypomagnesemia, replaced Hypertension Dyslipidemia Elevated liver enzymes Chronic nicotine dependence Regular alcohol use PLAN 2-D echocardiogram and Doppler study has been obtained and will be reviewed. Continue replacing magnesium per protocol. Perform stress echocardiogram to assess her stress induced cardiac ischemia. Recommend lifestyle modifications and smoking cessation as well as cessation of regular alcohol use. We will not start a statin at this time secondary to elevated liver enzymes. Sinus tachycardia secondary to an underlying process, further investigation per primary care team for underlying cause. Thyroid normal. May be related to hypomagnesemia. If stress test is normal he is stable from a cardiac perspective. Nurse Practitioner note has been reviewed, I agree with a documented findings and plan of care. Patient was seen and examined.
--- NOTE | 2018-01-10 12:02 | P.STRESS ---
- Stress Test Note Stress Test Results/Findings: Exam Performed: stress echo exercise Exam Date: 01/10/18 Reason for Exam: CP Height: 5 ft 6 in Weight: 66.678 kg Protocol: Stress Echo Stage: I Duration of Exercise: 3 Resting Heart Rate: 76 Resting Blood Pressure: 142/98 Maximum Achieved Heart Rate: 141 Maximum Achieved Blood Pressure: 158/83 85% PMHR: 136 100% PMHR: 160 METS: 4.4 Technologist Comment: Stress Test Results/Findings: This is a 62-year-old gentleman who was admitted to the hospital with chest pain. EKGs and cardiac enzymes were negative. Based on EKG showed a sinus rhythm with normal DC interval and QRS duration. Blood pressure test is 140/98 , pulse rate of 76. Patient walked for about 3 minutes achieving a maximal to the 141 with a blood pressure 158/83. EKGs taken during or after the x-ray did not reveal any changes to suggest ischemia. Echo data: Baseline echo images show normal wall motion and thickening. Exercise echo images showed augmentation of wall motion and thickening in all segments. Final impression: #1. Limited excess capacity #2. Negative stress test #3. Negative stress echo.
[2018-01-10 13:43] LABS: Iron Saturation 49.03 (15.00-50.00)
[2018-01-10 13:56] LABS: Folate, Serum 15.1 ng/mL
--- NOTE | 2018-01-10 19:25 | P.DS ---
Providers Date of admission: 01/09/18 18:28 Expected date of discharge: 01/10/18 Attending physician: Benson Gale MD Consults: 01/09/18 18:28 Consult Physician Urgent Consulting Provider: Charlie Alamo Consult Reason/Comments: cp Do you want consulting provider notified?: Yes Primary care physician: [facility] Hospital Course: The patient is a 62-year-old male with a past medical history of schizophrenia, hyperlipidemia, and seizure disorder who presented to the ED for complaints of chest pain of one-day duration. The patient's pain was associated with lightheadedness, shortness of breath, palpitations, and diaphoresis. His EKG was unremarkable and showed normal sinus rhythm, and troponin was less than 0.012. The patient was subsequently placed under observation to rule out ACS. Cardiology was consulted and the patient underwent an echocardiogram stress test. During the stress test, the patient walked for 3 minutes and achieved a maximum 141 pulse with no EKG changes to suggest ischemia. The echocardiogram images failed to show any signs of ischemia. Patient's echocardiogram showed normal systolic LV function with EF of 55-60%. The patient is thereby stable, and ready for discharge home with follow-up with cardiology as an outpatient. Physical Examination General: Awake, alert, in no acute distress HEENT: NC/AT, anicteric sclerae, moist conjunctiva, no lid-lag, PERRLA, oropharynx clear, no erythema, exudates Cardiovascular: S1/S2 wnl, no murmurs, rubs, or gallops Lungs: Clear to auscultation, normal respiratory effort, no accessory muscle use Abdominal: Soft, nontender, non-distended, no guarding, rebound, or rigidity, normoactive bowel sounds Skin: Warm, dry Extremities: No edema or contractures Psychiatric: Alert and oriented to person, place and time, appropriate affect, Intact judgment Neuro: CN II-XI grossly intact, sensation to light touch grossly present throughout, no focal sensory deficits Discharge diagnosis: Chest pain, negative for ischemia; HTN, HLD, Hypomagnesemia A total of 65 minutes of time were spent preparing this complex discharge summary. Pertinent Studies: Echocardiogram: EF of 55-60%, RVSP less than 35 mmHg, and borderline concentric LVH. Exercise echo stress test: Maximal heart rate achieved: 141. EKG with no changes of ischemia, an echocardiogram negative for ischemia. Patient Condition at Discharge: Stable Plan - Discharge Summary Discharge Rx Participant: Yes New Discharge Prescriptions: New Aspirin 81 mg PO DAILY #30 chew Multivitamins, Thera [Multivitamin (formulary)] 1 each PO DAILY@1200 tab Thiamine [Vitamin B-1] 100 mg PO BID@1200,1700 tab Continue Sertraline [Zoloft] 100 mg PO HS Ergocalciferol [Vitamin D2 (DRISDOL)] 50,000 unit PO Q14D Multivitamin [Men's Multi-Vitamin] 1 tab PO DAILY QUEtiapine FUMARATE [SEROquel] 600 mg PO HS Magnesium Oxide [Mag-Ox] 400 mg PO DAILY Lisinopril [Prinivil] 10 mg PO DAILY Discontinued Theratears 1 drop BOTH EYES Q3H PRN PRN Reason: Dry Eye(S) Ondansetron HCl [Zofran] 4 mg PO DAILY PRN PRN Reason: Nausea Eucerin Cream 1 applic TOPICAL DAILY Discharge Medication List Ergocalciferol [Vitamin D2 (DRISDOL)] 50,000 unit PO Q14D 11/10/16 [History] Multivitamin [Men's Multi-Vitamin] 1 tab PO DAILY 11/10/16 [History] Sertraline [Zoloft] 100 mg PO HS 11/10/16 [History] Lisinopril [Prinivil] 10 mg PO DAILY 01/09/18 [History] Magnesium Oxide [Mag-Ox] 400 mg PO DAILY 01/09/18 [History] QUEtiapine FUMARATE [SEROquel] 600 mg PO HS 01/09/18 [History] Aspirin 81 mg PO DAILY #30 chew 01/10/18 [Rx] Multivitamins, Thera [Multivitamin (formulary)] 1 each PO DAILY@1200 tab [Rx] Thiamine [Vitamin B-1] 100 mg PO BID@1200,1700 tab 01/10/18 [Rx] Follow up Appointment(s)/Referral(s[facility] - 1-2 days Maria De Jesus Perez MD [STAFF PHYSICIAN] - 1-2 Days (Office will call in a couple of days with an appt) Patient Instructions/Handouts: Chest Pain (ED) Discharge Disposition: HOME SELF-CARE
[2018-01-11] MEDS ORDERED: ASPIRIN 81 MG PO SCH (09:00)
--- NOTE | 2018-01-12 16:40 | ECHOS ---
Stress Test Results/Findings: Exam Performed: stress echo exercise Exam Date: 01/10/18 Reason for Exam: CP Height: 5 ft 6 in Weight: 66.678 kg Protocol: Stress Echo Stage: I Duration of Exercise: 3 Resting Heart Rate: 76 Resting Blood Pressure: 142/98 Maximum Achieved Heart Rate: 141 Maximum Achieved Blood Pressure: 158/83 85% PMHR: 136 100% PMHR: 160 METS: 4.4 Technologist Comment: Stress Test Results/Findings: This is a 62-year-old gentleman who was admitted to the hospital with chest pain. EKGs and cardiac enzymes were negative. Based on EKG showed a sinus rhythm with normal ID interval and QRS duration. Blood pressure test is 140/98 , pulse rate of 76. Patient walked for about 3 minutes achieving a maximal to the 141 with a blood pressure 158/83. EKGs taken during or after the x-ray did not reveal any changes to suggest ischemia. Echo data: Baseline echo images show normal wall motion and thickening. Exercise echo images showed augmentation of wall motion and thickening in all segments. Final impression: #1. Limited excess capacity #2. Negative stress test #3. Negative stress echo. CRISTIANO
== END 2018-01-10 16:25 | disposition home or self-care (01) ==
LOC: EC 14:34 → 3OBS 18:28
PROVIDERS: ADMIT Family Medicine; ATTEND Family Medicine
DX: R07.89 Other chest pain (principal); I47.1 Supraventricular tachycardia; E83.42 Hypomagnesemia; I10 Essential (primary) hypertension; E78.5 Hyperlipidemia, unspecified; G40.909 Epilepsy, unspecified, not intractable, without status epilepticus; R74.8 Abnormal levels of other serum enzymes; F17.200 Nicotine dependence, unspecified, uncomplicated; F10.10 Alcohol abuse, uncomplicated; D64.9 Anemia, unspecified; R79.1 Abnormal coagulation profile; R74.0 Nonspecific elevation of levels of transaminase and lactic acid dehydrogenase [LDH]; E87.8 Other disorders of electrolyte and fluid balance, not elsewhere classified; F20.9 Schizophrenia, unspecified; R61 Generalized hyperhidrosis; R42 Dizziness and giddiness; R06.02 Shortness of breath; R00.2 Palpitations; R20.0 Anesthesia of skin; Z79.899 Other long term (current) drug therapy; T43.596A Underdosing of other antipsychotics and neuroleptics, initial encounter
CPT/HCPCS: 99285; 96365; 96366 ×2; 96375 ×2; 36415; 93005; 93306; 93351; 84439; 80061; 80053 ×2; 84443; 82607; 82728; 82550 ×2; 82553 ×2; 82746; 83540; 83550; 83735 ×2; 84484 ×2; 85025 ×2; 85610 ×2; 85730; 71046; G0378 ×2; J2060; J1160; J3475 ×2

== ENCOUNTER 2018-10-04 22:24 | Emergency (ER) | payer MEDICARE, OTHER ==
[2018-10-04 22:31] VITALS: RESP 18
[2018-10-04] MEDS ORDERED: ONDANSETRON 4 MG/2 ML VIAL IVP STA (22:40)
[2018-10-04] MEDS ORDERED: SODIUM CHLORIDE 0.9% 1,000 ML IV STA ×2 (22:40)
[2018-10-04] MEDS ORDERED: LORazepam 2 MG/ML INJ IV STA (22:42)
--- NOTE | 2018-10-04 22:46 | ED ---
Recheck HPI - General Chief Complaint: Recheck/Abnormal Lab/Rx Stated Complaint: Not sleeping/eating Source: patient, RN notes reviewed, old records reviewed Mode of arrival: ambulatory Limitations: no limitations - History of Present Illness Initial Comments: This is a 63-year-old male the ER for evaluation. Patient presents today for evaluation regards to patient states on not eating, patient is unable to sleep, patient denies any recent significant medication she just is recovering alcoholic with possible hepatitis. Denies confusion or complaint. Patient was urged to have friends to be checked out in the emergency room and as well as presenting today MD Complaint: other (Patient wanted to be checked out secondary to not feeling well not sleeping or eating) -: month(s) Symptoms Since Prior Visit: no new symptoms Context: other (Not feeling well) Associated Symptoms: malaise, nausea Treatments Prior to Arrival: other (Patient is not eating or drinking) - Related Data Home Medications Medication Instructions Recorded Confirmed Ergocalciferol [Vitamin D2 50,000 unit PO Q14D 11/10/16 10/04/18 (DRISDOL)] Multivitamin [Men's Multi-Vitamin] 1 tab PO DAILY 11/10/16 10/04/18 Sertraline [Zoloft] 100 mg PO HS 11/10/16 10/04/18 Lisinopril [Prinivil] 10 mg PO DAILY 01/09/18 10/04/18 Magnesium Oxide [Mag-Ox] 400 mg PO DAILY 01/09/18 10/04/18 QUEtiapine FUMARATE [SEROquel] 600 mg PO HS 01/09/18 10/04/18 Allergies Allergy/AdvReac Type Severity Reaction Status Date / Time No Known Allergies Allergy Verified 10/04/18 22:59 Review of Systems ROS Statement: Those systems with pertinent positive or pertinent negative responses have been documented in the HPI. ROS Other: All systems not noted in ROS Statement are negative. Past Medical History Past Medical History: Hyperlipidemia, Seizure Disorder Additional Past Medical History / Comment(s): CHRONIC BACK PAIN. hx seizures, hep b History of Any Multi-Drug Resistant Organisms: None Reported Past Surgical History: Hernia Repair Past Anesthesia/Blood Transfusion Reactions: No Reported Reaction Past Psychological History: No Psychological Hx Reported Smoking Status: Current every day smoker Past Alcohol Use History: Abuse, Daily - Past Family History Mother Family Medical History: No Reported History Father Family Medical History: No Reported History General Exam Limitations: no limitations General appearance: alert, in no apparent distress Head exam: Present: atraumatic, normocephalic, normal inspection Eye exam: Present: normal appearance, PERRL, EOMI. Absent: scleral icterus, co njunctival injection, periorbital swelling ENT exam: Present: normal exam, mucous membranes moist Neck exam: Present: normal inspection. Absent: tenderness, meningismus, lymphadenopathy Respiratory exam: Present: normal lung sounds bilaterally. Absent: respiratory distress, wheezes, rales, rhonchi, stridor Cardiovascular Exam: Present: regular rate, normal rhythm, normal heart sounds. Absent: systolic murmur, diastolic murmur, rubs, gallop, clicks GI/Abdominal exam: Present: soft, normal bowel sounds. Absent: distended, tenderness, guarding, rebound, rigid Extremities exam: Present: normal inspection, full ROM, normal capillary refill. Absent: tenderness, pedal edema, joint swelling, calf tenderness Back exam: Present: normal inspection Neurological exam: Present: alert, oriented X3, CN II-XII intact Psychiatric exam: Present: normal affect, normal mood Skin exam: Present: warm, dry, intact, normal color. Absent: rash Course Vital Signs 10/04/18 10/04/18 10/05/18 22:28 23:40 00:30 Temperature 97.9 F 97.8 F Pulse Rate 110 H 81 91 Respiratory 18 18 18 Rate Blood Pressure 161/94 149/94 133/76 O2 Sat by Pulse 98 96 98 Oximetry - Reevaluation(s) Reevaluation #1: 10/05/18 00:01 Medical record is reviewed Reevaluation #2: 10/05/18 00:01 Patient is in no distress with no active physical findings Reevaluation #3: 10/05/18 01:01 Patient's awake and alert eating Medical Decision Making - Medical Decision Making Eczema male the ER for not eating or drinking times one month. Patient's eating here in the ER mild alcoholic ketoacidosis dehydration, patient encouraged to continue to drink fluids and can be discharged home - Lab Data Result diagrams: 10/04/18 23:10 10/04/18 23:10 Lab Results 10/04/18 10/04/18 10/04/18 Range/Units 23:10 23:10 23:10 WBC 5.4 (3.8-10.6) k/uL RBC 4.46 (4.30-5.90) m/uL Hgb 13.9 (13.0-17.5) gm/dL Hct 41.1 (39.0-53.0) % MCV 92.0 (80.0-100.0) fL MCH 31.2 (25.0-35.0) pg MCHC 33.9 (31.0-37.0) g/dL RDW 12.1 (11.5-15.5) % Plt Count 294 (150-450) k/uL Neutrophils % 53 % Lymphocytes % 36 % Monocytes % 7 % Eosinophils % 1 % Basophils % 0 % Neutrophils # 2.8 (1.3-7.7) k/uL Lymphocytes # 1.9 (1.0-4.8) k/uL Monocytes # 0.4 (0-1.0) k/uL Eosinophils # 0.0 (0-0.7) k/uL Basophils # 0.0 (0-0.2) k/uL PT (9.0-12.0) sec INR (<1.2) APTT (22.0-30.0) sec Sodium 134 L (137-145) mmol/L Potassium 3.8 (3.5-5.1) mmol/L Chloride 100 (98-107) mmol/L Carbon Dioxide 18 L (22-30) mmol/L Anion Gap 16 mmol/L BUN 2 L (9-20) mg/dL Creatinine 0.60 L (0.66-1.25) mg/dL Est GFR (CKD-EPI)AfAm >90 (>60 ml/min/1.73 sqM) Est GFR (CKD-EPI)NonAf >90 (>60 ml/min/1.73 sqM) Glucose 102 H (74-99) mg/dL Plasma Lactic Acid [place] 3.3 H* (0.7-2.0) mmol/L Calcium 9.4 (8.4-10.2) mg/dL Phosphorus 3.7 (2.5-4.5) mg/dL Magnesium 1.5 L (1.6-2.3) mg/dL Total Bilirubin 0.3 (0.2-1.3) mg/dL AST 91 H (17-59) U/L ALT 43 (21-72) U/L Alkaline Phosphatase 73 (38-126) U/L Ammonia 11 (<30) umol/L Creatine Kinase 98 (55-170) U/L NT-Pro-B Natriuret Pep pg/mL Total Protein 7.5 (6.3-8.2) g/dL Albumin 4.6 (3.5-5.0) g/dL Lipase 221 (23-300) U/L TSH 3.550 (0.465-4.680) mIU/L Urine Color Urine Appearance (Clear) Urine pH (5.0-8.0) Ur Specific [place] (1.001-1.035) Urine Protein (Negative) Urine Glucose (UA) (Negative) Urine Ketones (Negative) Urine Blood (Negative) Urine Nitrite (Negative) Urine Bilirubin (Negative) Urine Urobilinogen (<2.0) mg/dL Ur Leukocyte Esterase (Negative) Salicylates <1.0 mg/dL Urine Opiates Screen (NotDetected) Ur Oxycodone Screen (NotDetected) Urine Methadone Screen (NotDetected) Ur Propoxyphene Screen (NotDetected) Acetaminophen <10.0 ug/mL Ur Barbiturates Screen (NotDetected) U Tricyclic Antidepress (NotDetected) Ur Phencyclidine Scrn (NotDetected) Ur Amphetamines Screen (NotDetected) U Methamphetamines Scrn (NotDetected) U Benzodiazepines Scrn (NotDetected) Urine Cocaine Screen (NotDetected) U Marijuana (THC) Screen (NotDetected) Serum Alcohol 242 H* mg/dL 10/04/18 10/04/18 10/04/18 Range/Units 23:10 23:10 23:39 WBC (3.8-10.6) k/uL RBC (4.30-5.90) m/uL Hgb (13.0-17.5) gm/dL Hct (39.0-53.0) % MCV (80.0-100.0) fL MCH (25.0-35.0) pg MCHC (31.0-37.0) g/dL RDW (11.5-15.5) % Plt Count (150-450) k/uL Neutrophils % % Lymphocytes % % Monocytes % % Eosinophils % % Basophils % % Neutrophils # (1.3-7.7) k/uL Lymphocytes # (1.0-4.8) k/uL Monocytes # (0-1.0) k/uL Eosinophils # (0-0.7) k/uL Basophils # (0-0.2) k/uL PT 11.3 (9.0-12.0) sec INR 1.1 (<1.2) APTT 25.7 (22.0-30.0) sec Sodium (137-145) mmol/L Potassium (3.5-5.1) mmol/L Chloride (98-107) mmol/L Carbon Dioxide (22-30) mmol/L Anion Gap mmol/L BUN (9-20) mg/dL Creatinine (0.66-1.25) mg/dL Est GFR (CKD-EPI)AfAm (>60 ml/min/1.73 sqM) Est GFR (CKD-EPI)NonAf (>60 ml/min/1.73 sqM) Glucose (74-99) mg/dL Plasma Lactic Acid [place] (0.7-2.0) mmol/L Calcium (8.4-10.2) mg/dL Phosphorus (2.5-4.5) mg/dL Magnesium (1.6-2.3) mg/dL Total Bilirubin (0.2-1.3) mg/dL AST (17-59) U/L ALT (21-72) U/L Alkaline Phosphatase (38-126) U/L Ammonia (<30) umol/L Creatine Kinase (55-170) U/L NT-Pro-B Natriuret Pep 55 pg/mL Total Protein (6.3-8.2) g/dL Albumin (3.5-5.0) g/dL Lipase (23-300) U/L TSH (0.465-4.680) mIU/L Urine Color Urine Appearance (Clear) Urine pH (5.0-8.0) Ur Specific [place] (1.001-1.035) Urine Protein (Negative) Urine Glucose (UA) (Negative) Urine Ketones (Negative) Urine Blood (Negative) Urine Nitrite (Negative) Urine Bilirubin (Negative) Urine Urobilinogen (<2.0) mg/dL Ur Leukocyte Esterase (Negative) Salicylates mg/dL Urine Opiates Screen Not Detected (NotDetected) Ur Oxycodone Screen Not Detected (NotDetected) Urine Methadone Screen Not Detected (NotDetected) Ur Propoxyphene Screen Not Detected (NotDetected) Acetaminophen ug/mL Ur Barbiturates Screen Not Detected (NotDetected) U Tricyclic Antidepress Not Detected (NotDetected) Ur Phencyclidine Scrn Not Detected (NotDetected) Ur Amphetamines Screen Not Detected (NotDetected) U Methamphetamines Scrn Not Detected (NotDetected) U Benzodiazepines Scrn Not Detected (NotDetected) Urine Cocaine Screen Not Detected (NotDetected) U Marijuana (THC) Screen Not Detected (NotDetected) Serum Alcohol mg/dL 10/04/18 Range/Units 23:39 WBC (3.8-10.6) k/uL RBC (4.30-5.90) m/uL Hgb (13.0-17.5) gm/dL Hct (39.0-53.0) % MCV (80.0-100.0) fL MCH (25.0-35.0) pg MCHC (31.0-37.0) g/dL RDW (11.5-15.5) % Plt Count (150-450) k/uL Neutrophils % % Lymphocytes % % Monocytes % % Eosinophils % % Basophils % % Neutrophils # (1.3-7.7) k/uL Lymphocytes # (1.0-4.8) k/uL Monocytes # (0-1.0) k/uL Eosinophils # (0-0.7) k/uL Basophils # (0-0.2) k/uL PT (9.0-12.0) sec INR (<1.2) APTT (22.0-30.0) sec Sodium (137-145) mmol/L Potassium (3.5-5.1) mmol/L Chloride (98-107) mmol/L Carbon Dioxide (22-30) mmol/L Anion Gap mmol/L BUN (9-20) mg/dL Creatinine (0.66-1.25) mg/dL Est GFR (CKD-EPI)AfAm (>60 ml/min/1.73 sqM) Est GFR (CKD-EPI)NonAf (>60 ml/min/1.73 sqM) Glucose (74-99) mg/dL Plasma Lactic Acid [place] (0.7-2.0) mmol/L Calcium (8.4-10.2) mg/dL Phosphorus (2.5-4.5) mg/dL Magnesium (1.6-2.3) mg/dL Total Bilirubin (0.2-1.3) mg/dL AST (17-59) U/L ALT (21-72) U/L Alkaline Phosphatase (38-126) U/L Ammonia (<30) umol/L Creatine Kinase (55-170) U/L NT-Pro-B Natriuret Pep pg/mL Total Protein (6.3-8.2) g/dL Albumin (3.5-5.0) g/dL Lipase (23-300) U/L TSH (0.465-4.680) mIU/L Urine Color Light Yellow Urine Appearance Clear (Clear) Urine pH 5.5 (5.0-8.0) Ur Specific [place] 1.003 (1.001-1.035) Urine Protein Negative (Negative) Urine Glucose (UA) Negative (Negative) Urine Ketones Negative (Negative) Urine Blood Negative (Negative) Urine Nitrite Negative (Negative) Urine Bilirubin Negative (Negative) Urine Urobilinogen <2.0 (<2.0) mg/dL Ur Leukocyte Esterase Negative (Negative) Salicylates mg/dL Urine Opiates Screen (NotDetected) Ur Oxycodone Screen (NotDetected) Urine Methadone Screen (NotDetected) Ur Propoxyphene Screen (NotDetected) Acetaminophen ug/mL Ur Barbiturates Screen (NotDetected) U Tricyclic Antidepress (NotDetected) Ur Phencyclidine Scrn (NotDetected) Ur Amphetamines Screen (NotDetected) U Methamphetamines Scrn (NotDetected) U Benzodiazepines Scrn (NotDetected) Urine Cocaine Screen (NotDetected) U Marijuana (THC) Screen (NotDetected) Serum Alcohol mg/dL Disposition Clinical Impression: Alcohol intoxication Disposition: HOME SELF-CARE Condition: Fair Instructions (If sedation given, give patient instructions): Abuse of Alcohol (ED), Alcohol Dependence (ED), Alcohol Use Disorder (ED) Is patient prescribed a controlled substance at d/c from ED?: No Referrals: [facility] [Primary Care Provider] - 1-2 days
[2018-10-04 23:29] LABS: Basophils % (A) 0 %; Eosinophils % (A) 1 %; HCT 41.1 % (39.0-53.0); HGB 13.9 gm/dL (13.0-17.5); Lymphocytes # (A) 1.9 k/uL (1.0-4.8); Lymphocytes % (A) 36 %; MCH 31.2 pg (25.0-35.0); MCHC 33.9 g/dL (31.0-37.0); Mean Platelet Volume 6.4; Monocytes # (A) 0.4 k/uL (0-1.0); Monocytes % (A) 7 %; Neutrophils # (A) 2.8 k/uL (1.3-7.7); Neutrophils % (A) 53 %; Platelet Count 294 k/uL (150-450); RBC 4.46 m/uL (4.30-5.90); RDW 12.1 % (11.5-15.5); WBC 5.4 k/uL (3.8-10.6)
[2018-10-04 23:38] LABS: INR 1.1 (<1.2); Partial Thromboplastin Time 25.7 sec (22.0-30.0); Prothrombin Time 11.3 sec (9.0-12.0)
[2018-10-05 00:15] LABS: Appearance,Urine Clear (Clear); Bilirubin,Urine Negative (Negative); Blood,Urine Negative (Negative); Color,Urine Light Yellow; Glucose,Urine (UA) Negative (Negative); Ketones,Urine Negative (Negative); Leukocyte Esterase,Urine Negative (Negative); Nitrite,Urine Negative (Negative); PH, Urine 5.5 (5.0-8.0); Protein,Urine Negative (Negative); Specific Gravity,Urine 1.003 (1.001-1.035); Urobilinogen,Urine <2.0 mg/dL (<2.0)
[2018-10-05 00:17] LABS: ALT 43 U/L (21-72); AST 91 U/L (17-59); Acetaminophen <10.0 ug/mL; African American GFR (CKD) >90 (>60 ml/min/1.73 sqM); Albumin 4.6 g/dL (3.5-5.0); Alkaline Phosphatase 73 U/L (38-126); Anion Gap 16 mmol/L; Blood Urea Nitrogen 2 mg/dL (9-20); Calcium 9.4 mg/dL (8.4-10.2); Carbon Dioxide 18 mmol/L (22-30); Chloride 100 mmol/L (98-107); Creatine Kinase 98 U/L (55-170); Glucose 102 mg/dL (74-99); Lipase 221 U/L (23-300); Magnesium 1.5 mg/dL (1.6-2.3); Phosphorus 3.7 mg/dL (2.5-4.5); Potassium 3.8 mmol/L (3.5-5.1); Salicylate <1.0 mg/dL; Sodium 134 mmol/L (137-145); Total Bilirubin 0.3 mg/dL (0.2-1.3); Total Protein 7.5 g/dL (6.3-8.2)
[2018-10-05 00:22] LABS: Alcohol 242 mg/dL
[2018-10-05 00:23] LABS: Lactic Acid, Venous 3.3 mmol/L (0.7-2.0)
[2018-10-05 00:31] LABS: Amphetamine Screen,Urine Not Detected (NotDetected); Barbiturate Screen,Urine Not Detected (NotDetected); Benzodiazepines Screen,Urine Not Detected (NotDetected); Cocaine Screen,Urine Not Detected (NotDetected); Methadone Screen, Urine Not Detected (NotDetected); Opiate Screen,Urine Not Detected (NotDetected); Oxycodone Screen, Urine Not Detected (NotDetected); Phencyclidine Screen,Urine Not Detected (NotDetected); Tricyclic Antidepressant,Urine Not Detected (NotDetected); Urn Cannabinoid Scrn Not Detected (NotDetected)
[2018-10-05 01:00] VITALS: BP 133/76; PULSE 91; TEMP 97.8
== END 2018-10-05 01:52 | disposition home or self-care (01) ==
LOC: EC 22:24
DX: F10.129 Alcohol abuse with intoxication, unspecified (principal); E87.2 Acidosis; G47.9 Sleep disorder, unspecified; F17.200 Nicotine dependence, unspecified, uncomplicated; Z79.899 Other long term (current) drug therapy; Y90.8 Blood alcohol level of 240 mg/100 ml or more
CPT/HCPCS: 99284 ×2; 96374 ×2; 96375 ×2; 96361 ×2; 36415 ×2; 93005; 83880; 80053; 82140; 82550; 83605; 83690; 83735; 84100; 84443; 84484; 85025; 85610; 85730; 81003; 80306; 83520; 87086; G0480 ×2; J2060; J2405; 80320; 80329

== ENCOUNTER 2019-08-28 14:00 | Emergency (ER) | payer MEDICARE, OTHER ==
[2019-08-28 14:15] VITALS: BP 156/85; PULSE 99; RESP 20; TEMP 98.1
--- NOTE | 2019-08-28 15:14 | ED ---
General Adult HPI - General Chief complaint: Skin/Abscess/Foreign Body Stated complaint: rash on back of neck Time Seen by Provider: 08/28/19 14:39 Source: patient, RN notes reviewed Mode of arrival: ambulatory Limitations: no limitations - History of Present Illness Initial comments: 64-year-old male with a past medical history of hyperlipidemia, seizure disorder presents to the emergency department for a chief complaint of rash. Patient states he has had a rash to the back of his neck for about 3 weeks. States it is very itchy. Denies rash anywhere else on the body. Denies fevers. Denies any new medications. Denies starting any new shampoos.Patient has no other complaints at this time including shortness of breath, chest pain, abdominal pain, nausea or vomiting, headache, or visual changes. - Related Data Home Medications Medication Instructions Recorded Confirmed Ergocalciferol [Vitamin D2 50,000 unit PO Q14D 11/10/16 10/04/18 (DRISDOL)] Multivitamin [Men's Multi-Vitamin] 1 tab PO DAILY 11/10/16 10/04/18 Sertraline [Zoloft] 100 mg PO HS 11/10/16 10/04/18 Lisinopril [Prinivil] 10 mg PO DAILY 01/09/18 10/04/18 Magnesium Oxide [Mag-Ox] 400 mg PO DAILY 01/09/18 10/04/18 QUEtiapine FUMARATE [SEROquel] 600 mg PO HS 01/09/18 10/04/18 Previous Rx's Medication Instructions Recorded Hydrocortisone Cream 1 applic TOPICAL TID 7 Days #30 gm 08/28/19 [Hydrocortisone 1% Cream] Allergies Allergy/AdvReac Type Severity Reaction Status Date / Time No Known Allergies Allergy Verified 08/28/19 14:15 Review of Systems ROS Statement: Those systems with pertinent positive or pertinent negative responses have been documented in the HPI. ROS Other: All systems not noted in ROS Statement are negative. Past Medical History Past Medical History: Hyperlipidemia, Seizure Disorder Additional Past Medical History / Comment(s): CHRONIC BACK PAIN. hx seizures, hep b History of Any Multi-Drug Resistant Organisms: None Reported Past Surgical History: Hernia Repair Past Anesthesia/Blood Transfusion Reactions: No Reported Reaction Past Psychological History: No Psychological Hx Reported Smoking Status: Current every day smoker Past Alcohol Use History: Abuse, Daily Past Drug Use History: None Reported - Past Family History Mother Family Medical History: No Reported History Father Family Medical History: No Reported History General Exam Limitations: no limitations General appearance: alert, in no apparent distress Head exam: Present: atraumatic, normocephalic, normal inspection Eye exam: Present: normal appearance, PERRL, EOMI. Absent: scleral icterus, conjunctival injection, periorbital swelling ENT exam: Present: normal exam, mucous membranes moist Neck exam: Present: full ROM, other (He has an erythematous scaly rash to the back of the neck bilaterally. No drainage from the area.). Absent: tenderness, meningismus, lymphadenopathy Respiratory exam: Present: normal lung sounds bilaterally. Absent: respiratory distress, wheezes, rales, rhonchi, stridor Cardiovascular Exam: Present: regular rate, normal rhythm, normal heart sounds. Absent: systolic murmur, diastolic murmur, rubs, gallop, clicks Course Vital Signs 08/28/19 14:13 Temperature 98.1 F Pulse Rate 99 Respiratory 20 Rate Blood Pressure 156/85 O2 Sat by Pulse 99 Oximetry Medical Decision Making - Medical Decision Making HPI and physical exam as documented. A started patient on a steroid cream. I discussed that he needs to follow up with dermatology or primary care to ensure it is resolving. If he cannot see them and it is not resolving he should return here to the emergency department. He is aware of this. I did prescribe his antibiotic cream to the pharmacy and the hospital so he does not have to walk to [address]. He was thankful for this. Disposition Clinical Impression: Rash Disposition: HOME SELF-CARE Condition: Good Instructions (If sedation given, give patient instructions): Acute Rash (ED) Additional Instructions: Please apply steroid cream to affected area. Please follow-up with primary care and dermatology. If you have any worsening symptoms return to the emergency department. Prescriptions: Hydrocortisone Cream [Hydrocortisone 1% Cream] 1 applic TOPICAL TID 7 Days #30 gm Is patient prescribed a controlled substance at d/c from ED?: No Referrals: [facility] [Primary Care Provider] - 1-2 days Bernardo Toussaint MD [STAFF PHYSICIAN] - 1-2 days Time of Disposition: 15:13
== END 2019-08-28 15:27 | disposition home or self-care (01) ==
LOC: EC 14:00
DX: R21 Rash and other nonspecific skin eruption (principal); F17.200 Nicotine dependence, unspecified, uncomplicated; Z79.899 Other long term (current) drug therapy
CPT/HCPCS: 99282

== ENCOUNTER 2022-04-01 12:33 | Emergency (ER) | payer MEDICARE ==
[2022-04-01 12:50] VITALS: BP 134/88; PULSE 90; RESP 18; TEMP 97.6
[2022-04-01] MEDS ORDERED: SODIUM CHLORIDE 0.9% 1,000 ML IV STA (13:04)
--- NOTE | 2022-04-01 13:08 | ED ---
General Adult HPI - General Chief complaint: Fall Stated complaint: AMS Time Seen by Provider: 04/01/22 12:52 Source: patient Mode of arrival: ambulatory - History of Present Illness Initial comments: Patient is a 66-year-old male brought into the emergency room by EMS a fter being found by a coworker on the ground. Intact etiology of mechanism to the ground is unsure whether reports of questionable seizure versus syncope versus EtOH intoxication. Patient is a poor historian but appears to be at near mental status but with slow responses. He is inattentive at times and has difficulty following commands at times consequently focal neurological deficits are difficult to assess but none are apparent. He is complaining of pain anywhere and he believes it is due to muscle cramping from seizure however EMS deny any evidence of postictal state. He denies any new joint range of motion impairment, wounds or lacerations from going to the ground. He is adamant that his last drink was yesterday around bedtime and that he has been at work since approximately 9 AM after riding the bus to work around 8:30. In addition to seizure and EtOH history he has a past medical history significant for chronic back pain, hepatitis B and hyperlipidemia. - Related Data Home Medications Medication Instructions Recorded Confirmed Ergocalciferol [Vitamin D2 50,000 unit PO Q14D 11/10/16 10/04/18 (DRISDOL)] Multivitamin [Men's Multi-Vitamin] 1 tab PO DAILY 11/10/16 10/04/18 Sertraline [Zoloft] 100 mg PO HS 11/10/16 10/04/18 Magnesium Oxide [Mag-Ox] 400 mg PO DAILY 01/09/18 10/04/18 QUEtiapine FUMARATE [SEROquel] 600 mg PO HS 01/09/18 10/04/18 lisinopriL [Prinivil] 10 mg PO DAILY 01/09/18 10/04/18 Previous Rx's Medication Instructions Recorded Hydrocortisone Cream 1 applic TOPICAL TID 7 Days #30 gm 08/28/19 [Hydrocortisone 1% Cream] Allergies Allergy/AdvReac Type Severity Reaction Status Date / Time No Known Allergies Allergy Verified 08/28/19 14:15 Review of Systems ROS Statement: Those systems with pertinent positive or pertinent negative responses have been documented in the HPI. ROS Other: All systems not noted in ROS Statement are negative. Past Medical History Past Medical History: Hyperlipidemia, Seizure Disorder Additional Past Medical History / Comment(s): CHRONIC BACK PAIN. hx seizures, hep b History of Any Multi-Drug Resistant Organisms: None Reported Past Surgical History: Hernia Repair Past Anesthesia/Blood Transfusion Reactions: No Reported Reaction Past Psychological History: Schizophrenia Past Alcohol Use History: Abuse, Daily Past Drug Use History: None Reported - Past Family History Mother Family Medical History: No Reported History Father Family Medical History: No Reported History General Exam General appearance: alert, in no apparent distress Head exam: Present: atraumatic, normocephalic, normal inspection Eye exam: Present: normal appearance, PERRL. Absent: scleral icterus, conjunctival injection, periorbital swelling, periorbital tenderness ENT exam: Present: normal exam, mucous membranes moist Neck exam: Present: normal inspection, full ROM Respiratory exam: Present: normal lung sounds bilaterally. Absent: respiratory distress, wheezes, rales, rhonchi, stridor Cardiovascular Exam: Present: regular rate, normal rhythm, normal heart sounds. Absent: systolic murmur, diastolic murmur, rubs, gallop, clicks GI/Abdominal exam: Present: soft, normal bowel sounds. Absent: distended, tenderness, guarding, rebound, rigid Extremities exam: Present: normal inspection. Absent: pedal edema, joint swelling Back exam: Present: normal inspection, full ROM Expanded Neurological exam: Present: inattentive, protecting the airway, other (slow speech) Patient oriented to: Present: person. Absent: place, time Eye Response: (4) open spontaneously Motor Response: (6) obeys commands (at times) Verbal Response: (4) confused conversation Psychiatric exam: Present: flat affect Skin exam: Present: warm, dry, intact, normal color. Absent: rash Course Vital Signs 04/01/22 12:47 Temperature 97.6 F Pulse Rate 90 Respiratory 18 Rate Blood Pressure 134/88 O2 Sat by Pulse 98 Oximetry - Reevaluation(s) Reevaluation #1: Patient returned from computed tomography scan agitated due to unable to find his glasses. His glasses were found however he continued to remain agitated and appears to be back at baseline mentation of anal 3 with steady gait in the room despite serum alcohol result of 296. Patient is adamant that he is leaving being belligerent with staff. Advised need results of labs due to concern for seizure activity versus EtOH-induced syncope however patient is not agreeable to continue to wait for results in called his daughter to pick him up. Time: 13:53 Medical Decision Making - Medical Decision Making 66-year-old male presenting to the emergency room after being found on the ground with altered mental status unclear etiology of course proceeding events leading to him being found on the ground. History of EtOH and seizures.No apparent extremity and she really or focal neurological deficit. Will proceed with imaging of computed tomography scan no indication for any other diagnostic imaging at this time. Will obtain EKG along with blood work of CBC CMP, troponin, coags, alcohol, lactic acid and serum alcohol level. Will also give 1 L IV fluid bolus. CBC reveals mild anemia, no leukocytosis, CMP overall unremarkable except slightly low sodium and bicarbonate level, CO2 20. Serum alcohol elevated at 296 and consistent with last drink yesterday evening. Lactic acid normal. Troponin negative awaiting Dilantin levels. After computed tomography scan prior to EKG of being obtained patient became belligerent and back at baseline mental status of alert and oriented 3 adamant about leaving. Advised need for continue monitoring given syncopal event and lack of Dilantin level return along with intoxication. Patient refuses to stay and has contacted his daughter to pick him up. His daughter is taking him home and he is leaving AGAINST MEDICAL ADVICE. Case discussed with Dr. Mancia. - Lab Data Result diagrams: 04/01/22 13:12 04/01/22 13:12 Lab Results 04/01/22 04/01/22 04/01/22 Range/Units 13:12 13:12 13:12 WBC 6.5 (3.8-10.6) k/uL RBC 3.95 L (4.30-5.90) m/uL Hgb 12.7 L (13.0-17.5) gm/dL Hct 35.7 L (39.0-53.0) % MCV 90.3 (80.0-100.0) fL MCH 32.0 (25.0-35.0) pg MCHC 35.5 (31.0-37.0) g/dL RDW 11.5 (11.5-15.5) % Plt Count 352 (150-450) k/uL MPV 7.1 Neutrophils % 48 % Lymphocytes % 43 % Monocytes % 6 % Eosinophils % 1 % Basophils % 1 % Neutrophils # 3.1 (1.3-7.7) k/uL Lymphocytes # 2.7 (1.0-4.8) k/uL Monocytes # 0.4 (0-1.0) k/uL Eosinophils # 0.1 (0-0.7) k/uL Basophils # 0.0 (0-0.2) k/uL PT 11.9 (9.0-12.0) sec INR 1.1 (<1.2) APTT 26.0 (22.0-30.0) sec Sodium 136 L (137-145) mmol/L Potassium 4.3 (3.5-5.1) mmol/L Chloride 105 (98-107) mmol/L Carbon Dioxide 20 L (22-30) mmol/L Anion Gap 11 mmol/L BUN 8 L (9-20) mg/dL Creatinine 0.77 (0.66-1.25) mg/dL Est GFR (CKD-EPI)AfAm >90 (>60 ml/min/1.73 sqM) Est GFR (CKD-EPI)NonAf >90 (>60 ml/min/1.73 sqM) Glucose 98 (74-99) mg/dL Plasma Lactic Acid Easton (0.7-2.0) mmol/L Calcium 8.6 (8.4-10.2) mg/dL Total Bilirubin 0.3 (0.2-1.3) mg/dL AST 36 (17-59) U/L ALT 20 (4-49) U/L Alkaline Phosphatase 53 (38-126) U/L Troponin I (0.000-0.034) ng/mL Total Protein 7.0 (6.3-8.2) g/dL Albumin 4.1 (3.5-5.0) g/dL Phenytoin <3.0 ug/mL Serum Alcohol 296 H* mg/dL 04/01/22 04/01/22 Range/Units 13:12 13:12 WBC (3.8-10.6) k/uL RBC (4.30-5.90) m/uL Hgb (13.0-17.5) gm/dL Hct (39.0-53.0) % MCV (80.0-100.0) fL MCH (25.0-35.0) pg MCHC (31.0-37.0) g/dL RDW (11.5-15.5) % Plt Count (150-450) k/uL MPV Neutrophils % % Lymphocytes % % Monocytes % % Eosinophils % % Basophils % % Neutrophils # (1.3-7.7) k/uL Lymphocytes # (1.0-4.8) k/uL Monocytes # (0-1.0) k/uL Eosinophils # (0-0.7) k/uL Basophils # (0-0.2) k/uL PT (9.0-12.0) sec INR (<1.2) APTT (22.0-30.0) sec Sodium (137-145) mmol/L Potassium (3.5-5.1) mmol/L Chloride (98-107) mmol/L Carbon Dioxide (22-30) mmol/L Anion Gap mmol/L BUN (9-20) mg/dL Creatinine (0.66-1.25) mg/dL Est GFR (CKD-EPI)AfAm (>60 ml/min/1.73 sqM) Est GFR (CKD-EPI)NonAf (>60 ml/min/1.73 sqM) Glucose (74-99) mg/dL Plasma Lactic Acid Easton 1.7 (0.7-2.0) mmol/L Calcium (8.4-10.2) mg/dL Total Bilirubin (0.2-1.3) mg/dL AST (17-59) U/L ALT (4-49) U/L Alkaline Phosphatase (38-126) U/L Troponin I <0.012 (0.000-0.034) ng/mL Total Protein (6.3-8.2) g/dL Albumin (3.5-5.0) g/dL Phenytoin ug/mL Serum Alcohol mg/dL Disposition Clinical Impression: Alcohol intoxication, Fall Disposition: Left Against Medical Advice Condition: Stable Additional Instructions: Patient should follow-up with his primary care provider along with his community mental health provider in regards to his seizure history and Dilantin level that was drawn but not resulted at the time of departure from the emergency department. Alcohol cessation encouraged. Please return to the Emergency Department if symptoms worsen or any other concerns. Is patient prescribed a controlled substance at d/c from ED?: No Referrals: [facility] [NON-STAFF] - 1-2 days Time of Disposition: 13:54
[2022-04-01 13:22] LABS: Basophils % (A) 1 %; Eosinophils # (A) 0.1 k/uL (0-0.7); Eosinophils % (A) 1 %; HCT 35.7 % (39.0-53.0); HGB 12.7 gm/dL (13.0-17.5); Lymphocytes # (A) 2.7 k/uL (1.0-4.8); Lymphocytes % (A) 43 %; MCHC 35.5 g/dL (31.0-37.0); MCV 90.3 fL (80.0-100.0); Mean Platelet Volume 7.1; Monocytes # (A) 0.4 k/uL (0-1.0); Monocytes % (A) 6 %; Neutrophils # (A) 3.1 k/uL (1.3-7.7); Neutrophils % (A) 48 %; Platelet Count 352 k/uL (150-450); RBC 3.95 m/uL (4.30-5.90); RDW 11.5 % (11.5-15.5); WBC 6.5 k/uL (3.8-10.6)
[2022-04-01 13:32] LABS: INR 1.1 (<1.2); Prothrombin Time 11.9 sec (9.0-12.0)
[2022-04-01 13:33] LABS: ALT 20 U/L (4-49); AST 36 U/L (17-59); African American GFR (CKD) >90 (>60 ml/min/1.73 sqM); Albumin 4.1 g/dL (3.5-5.0); Alkaline Phosphatase 53 U/L (38-126); Anion Gap 11 mmol/L; Blood Urea Nitrogen 8 mg/dL (9-20); Calcium 8.6 mg/dL (8.4-10.2); Carbon Dioxide 20 mmol/L (22-30); Chloride 105 mmol/L (98-107); Glucose 98 mg/dL (74-99); Non-African American GFR(CKD) >90 (>60 ml/min/1.73 sqM); Potassium 4.3 mmol/L (3.5-5.1); Sodium 136 mmol/L (137-145); Total Bilirubin 0.3 mg/dL (0.2-1.3)
[2022-04-01 13:35] LABS: Alcohol 296 mg/dL
--- NOTE | 2022-04-01 13:36 | CT ---
EXAMINATION TYPE: CT brain wo con DATE OF EXAM: 04/01/2022 COMPARISON: 11/12/16 HISTORY: Syncope CT DLP: 1173.[address] of the brain was performed. The ventricles, basal cisterns and sulci overlying the cerebral convexities demonstrate mild enlargem ent. There is no evidence for intracranial hemorrhage or sulcal effacement. There is decreased attenuation about the periventricular white matter and deep white matter of both c erebral hemispheres, compatible with chronic small vessel ischemia. Differential diagnosis does inclu de demyelination. No mass effects are seen.No midline shift. Osseous calvarium is intact. If symptoms persist consider MRI. IMPRESSION: 1. Age related atrophic and chronic small vessel ischemic change without acute intracranial process s een at this time.
[2022-04-01 14:07] LABS: Phenytoin (Dilantin) <3.0 ug/mL
== END 2022-04-01 13:49 | disposition left against medical advice (07) ==
LOC: EC 12:33
DX: F10.129 Alcohol abuse with intoxication, unspecified (principal); I67.82 Cerebral ischemia; Z53.29 Procedure and treatment not carried out because of patient's decision for other reasons; W19.XXXA Unspecified fall, initial encounter
CPT/HCPCS: 36415; 80053; 80185; 83605; 84484; 85025; 85610; 85730; 70450; 99284; G0480; 80320; 93005

== ENCOUNTER → 2022-07-22 | Outpatient (CLI) | payer MEDICARE, OTHER ==
[2022-07-23 01:26] LABS: Basophils # (A) 0.05 X 10*3/uL (0.00-0.10); Basophils % (A) 0.5 %; Eosinophils # (A) 0.06 X 10*3/uL (0.04-0.35); Eosinophils % (A) 0.6 %; HCT 45.4 % (39.6-50.0); HGB 14.6 g/dL (13.0-17.0); Immature Grans, Automated 0.2 %; Lymphocytes # (A) 2.17 X 10*3/uL (0.90-5.00); Lymphocytes % (A) 22.1 %; MCH 29.9 pg (27.0-32.0); MCHC 32.2 g/dL (32.0-37.0); MCV 92.8 fL (80.0-97.0); Mean Platelet Volume 10.9 fL (9.5-12.2); Monocytes # (A) 0.66 X 10*3/uL (0.20-1.00); Monocytes % (A) 6.7 %; NRBC Per 100 WBC 0 /100 WBCS (0.0-0.0); Neutrophils # (A) 6.86 X 10*3/uL (1.80-7.70); Neutrophils % (A) 69.9 %; Platelet Count 275 X 10*3/uL (140-440); RBC 4.89 X 10*6/uL (4.40-5.60); RDW 12.5 % (11.5-14.5); WBC 9.82 X 10*3/uL (4.50-10.00)
== END | disposition home or self-care (01) ==
LOC: LABPAT 15:33
PROVIDERS: ATTEND Surgery
DX: Z01.812 Encounter for preprocedural laboratory examination (principal); K40.91 Unilateral inguinal hernia, without obstruction or gangrene, recurrent; R94.31 Abnormal electrocardiogram [ECG] [EKG]
CPT/HCPCS: 85025; 86850; 86900; 86901; 93005

== ENCOUNTER 2022-07-27 05:54 | Day surgery (SDC) | payer MEDICARE, OTHER ==
[2022-07-23 11:05] VITALS: BMI 26.4
[~2022-07-27 05:54] MED LIST: ACETAMINOPHEN TAB 500 MG TAB PO PRN; HEPARIN SODIUM,PORCINE/PF 5,000 UNIT/0.5 ML SYRINGE SQ PRN
[2022-07-27] MEDS ORDERED: ONDANSETRON 4 MG/2 ML VIAL IVP ONE (06:01)
[2022-07-27] MEDS ORDERED: LIDOCAINE 1% (10MG/ML) FOR IV START INTRADERMA PRN (06:01)
[2022-07-27] MEDS ORDERED: MIDAZOLAM 2 MG/2 ML VIAL IV PRN (06:01)
[2022-07-27] MEDS ORDERED: DEXAMETHASONE SOD PHOSPHATE 4 MG/ML 1 ML VIAL IV ONE (06:01)
[2022-07-27] MEDS ORDERED: LACTATED RINGERS 1,000 ML IV SCH (06:01)
[2022-07-27] MEDS ORDERED: HYDROmorphone 0.5 MG/0.5 ML SYRINGE IVP PRN (07:00)
[2022-07-27] MEDS ORDERED: BUPIVACAIN-EPI 0.25%-1:200,000 30 ML VIAL SQ ONE ×2 (07:08→08:01)
[2022-07-27] MEDS ORDERED: ePHEDrine 50 MG/ML 1 ML VIAL ONE (07:35)
[2022-07-27] MEDS ORDERED: LIDOCAINE 2% INJ 20 MG/ML (2 ML VIAL) ONE (07:35)
[2022-07-27] MEDS ORDERED: PROPOFOL 10 MG/ML 20 ML VIAL IV ONE (07:35)
[2022-07-27] MEDS ORDERED: ROPIVACAINE 5 MG/ML 30 ML VIAL ONE (07:35)
[2022-07-27] MEDS ORDERED: LIDOCAINE 4% LTA KIT (4 ML) TOPICAL ONE (07:35)
[2022-07-27] MEDS ORDERED: SUCCINYLCHOLINE CHLORIDE 200 MG/10 ML VIAL IV ONE (07:35)
[2022-07-27] MEDS ORDERED: NEOSTIGMINE 1 MG/ML 10 ML VIAL ONE (07:35)
[2022-07-27] MEDS ORDERED: SODIUM CHLORIDE 0.9% (PF) 10 ML VIAL ONE (07:35)
[2022-07-27] MEDS ORDERED: ROCURONIUM 10 MG/ML (5 ML VIAL) IV ONE (07:35)
[2022-07-27] MEDS ORDERED: KETOROLAC 15 MG/ML 1 ML VIAL ONE (07:35)
[2022-07-27] MEDS ORDERED: fentaNYL (PF) 50 MCG/ML 2 ML AMP ONE (07:35)
[2022-07-27] MEDS ORDERED: GLYCOPYRROLATE 0.2 MG/ML 2 ML VIAL ONE (07:35)
--- NOTE | 2022-07-27 07:56 | P.ANPRN ---
Procedure Note - Anesthesia - Nerve Block Performed Left Erector Spinae Date of Procedure: 07/27/22 Procedure Start Time: 06:59 Procedure Stop Time: 07:08 Location of Patient: PreOp Indication: Analgesia, Requested by Surgeon Sedation Type: Sedate with meaningful contact maintained Preparation: Sterile Prep Position: Prone Needle Gauge: 21 Ultrasound used to visualize needle placement: Yes Ultrasound used to observe medication spread: Yes Injectate: Other (see comment) (Ropivacaine 0.25%, 30 mls) Blood Aspirated: No Pain Paresthesia on Injection Noted: No Resistance on Injection: Normal Image Stored and Saved: Yes Events: Uneventful and Well Tolerated
--- NOTE | 2022-07-27 08:43 | P.OP ---
Date of Procedure: 07/27/22 Preoperative Diagnosis: Left recurrent inguinal hernia Postoperative Diagnosis: Left recurrent inguinal hernia Right inguinal hernia Right cord lipoma Procedure(s) Performed: Laparoscopic robotic repair of recurrent left inguinal hernia Laparoscopic robotic. Of right inguinal hernia Laparoscopic excision of right cord lipoma Transversus abdominis plane block Anesthesia: WALDO Surgeon: Ghulam Ramirez Estimated Blood Loss (ml): 5 Pathology: other (Right cord lipoma) Condition: stable Disposition: PACU Description of Procedure: The patient's placed on the operating table in the supine position. The patient received general anesthesia. The patient's abdomen was prepped and draped in usual sterile fashion. The skin was anesthetized 1% local Xylocaine at the incision sites. Using an 11 blade a skin incision was made at the umbilicus. The fascia was grasped with a Juan Manuel and then the peritoneal cavity was entered with the Veress needle. Position of the Veress needle was confirmed with a positive drop test. After adequate insufflation a 5 mm trocar was placed into the peritoneal cavity. The Laparoscope was placed the peritoneal cavity. And a robotic 8 mm trocar was placed in the right lateral position and then another 8 mm robotic trochars placed in the left lateral position. The original 5 mm trocar was exchanged for a 12 mm trocar. A four-quadrant transverse subcostal block was then performed using 1% local Xylocaine The patient was placed in reverse Trendelenburg and then the patient was docked to the robot. Next the peritoneum over top of the right inguinal hernia was incised and then using blunt and sharp dissection and electrocautery the hernia sac was dissected free from the floor of the inguinal canal. The right cord lipoma was dissected free sent to pathology. The hernia sac was completely reduced into the peritoneal cavity. And then using the Pro gear hobber mesh the hernia was repaired. The peritoneum was then sutured with 20V lock suture. Next the peritoneum over top of the left inguinal hernia was incised and then using blunt and sharp dissection and electrocautery the hernia sac was dissected free from the floor of the inguinal canal. The hernia sac was completely reduced into the peritoneal cavity. And then using the Pro gear hobber mesh the hernia was repaired. The peritoneum was then sutured with 20V lock suture. The patient was then undocked the robot. The needle was withdrawn from the peritoneal cavity. The umbilical trocar site was closed with 0 Ethibond suture. The skin was closed interrupted 3-0 Monocryl suture. Dermabond dressing was applied. Patient was sent to recovery in stable condition.
[2022-07-27 08:49] VITALS: TEMP 97
[2022-07-27 10:25] VITALS: RESP 18
[2022-07-27 11:07] VITALS: BP 140/77; PULSE 72
== END 2022-07-27 11:17 | disposition home or self-care (01) ==
LOC: OR 05:54
PROVIDERS: ATTEND Surgery
DX: D17.6 Benign lipomatous neoplasm of spermatic cord (principal); K40.91 Unilateral inguinal hernia, without obstruction or gangrene, recurrent; G89.18 Other acute postprocedural pain; E78.5 Hyperlipidemia, unspecified; F17.210 Nicotine dependence, cigarettes, uncomplicated; G40.909 Epilepsy, unspecified, not intractable, without status epilepticus; Z98.890 Other specified postprocedural states; Z79.899 Other long term (current) drug therapy
CPT/HCPCS: 64999; 76942; 86900; 86901; 88304; 86850; 49651; C1781 ×2; J2250; J0330; J1100; J2710; J0690; J2405; J3010; J2795; J1885; J2704; J1170; J1644; J2001

== ENCOUNTER → 2022-11-19 | Outpatient (CLI) | payer MEDICARE, OTHER ==
--- NOTE | 2022-11-24 10:09 | PE ---
EXAMINATION TYPE: PET CT fusion skull to thigh DATE OF EXAM: 11/19/2022 COMPARISON: None Prior PET/CT: None HISTORY: Head and neck cancer TECHNIQUE: Following the intravenous administration of 13.2 mCi of F-18 FDG, whole body images are p erformed from the skull base to the midthigh. Images are reviewed on the computer in the coronal, ax ial, and sagittal planes. Reconstructed rotating images are created on independent workstation and r eviewed on the computer. A localization and attenuation correction CT is performed in conjunction w ith the PET scan. DLP: 416.44 mGycm SCAN: Initial Blood glucose: 93 mg/dL Average Mediastinum SUV: 1.5 Average Liver SUV: 1.58 FINDINGS: Head and neck: There is focal uptake just below the anterior left maxilla, image 53, SUV value of 13. 61. NECK: More diffuse uptake is present on the whole body imaging through the anterior soft tissues bet ween the maxilla and mandible. Findings could be compatible with the patient's reported tongue cancer . SUV 4.66. Increased uptake is adjacent to the anterior curvature of the mandible. Small focal area extends inferiorly, SUV value of 3.35, image 29. THORAX: No abnormal uptake ABDOMEN: No abnormal uptake PELVIS: There is some bowel activity in the anterior right lower quadrant, image 196, SUV value 3.25 this appears to reside within some small bowel. This could be artifact from normal activity. OSSEOUS STRUCTURES: No abnormal uptake LOCALIZATION CT: Some coronary artery calcification is noted. There is a calcification within the lat eral right lower lung field. COMPARISON: None IMPRESSION: 1. Increased uptake within the anterior soft tissues can be compatible with the patient's reported to ngue cancer. Milder uptake is more posterior within the tongue.
== END | disposition home or self-care (01) ==
LOC: RADPETMAIN 14:51
PROVIDERS: ATTEND Otolaryngology
DX: C02.9 Malignant neoplasm of tongue, unspecified (principal)
CPT/HCPCS: 78815; A9552

== ENCOUNTER → 2022-11-25 | Outpatient (CLI) | payer MEDICARE, OTHER ==
--- NOTE | 2022-11-25 15:00 | XR ---
EXAMINATION TYPE: XR chest 2V DATE OF EXAM: 11/25/2022 COMPARISON: 11/19/[address] TECHNIQUE: PA and lateral views submitted. HISTORY: Redness of breath FINDINGS: The lungs are clear and there is no pneumothorax, pleural effusion, or focal pneumonia. Heart size normal and no overt failure. Osseous structures demonstrate hypertrophic and degenerative changes of the spine. Calcified granuloma right lower lobe. Hyperexpansion compatible atherosclerotic change aor ta. IMPRESSION: 1. No acute process. Correlate for COPD. 2. Stable right lower lobe nodule which appears to represent a granuloma by recent PET CT scan.
[2022-11-25 15:37] LABS: African American GFR (CKD) >90 (>60 ml/min/1.73 sqM); Blood Urea Nitrogen 16 mg/dL (9-20); Non-African American GFR(CKD) 88 (>60 ml/min/1.73 sqM)
--- NOTE | 2022-11-28 10:43 | CT ---
EXAMINATION TYPE: CT soft tissue neck w con DATE OF EXAM: 11/25/2022 COMPARISON: 11/19/2022 HISTORY: tongue ca CT DLP: 405.2 mGycm CONTRAST: Patient injected with 100 mL of Isovue 300. TECHNIQUE: Axial images at 3 mm thick sections. Reconstructed images in the coronal plane and sagitt al plane are reviewed. FINDINGS: Limited CT sections are obtained the lung apices. The lung apices appear clear. Some emphy sematous change may be present. Subglottic airway and tracheal bronchial tree as visualized appears n ormal. CT neck: The torus tubarius and fossa of Rosenmuller are normal. Blind Installer spaces are normal. Visu alized Paranasal sinuses and mastoid air cells are clear. Parotid glands appear normal and symmetrical. Submandibular glands, are normal. Parapharyngeal spac es are normal. No suspicious adenopathy is evident. The hypopharynx appears within normal limits. Vocal cord level appear symmetrical. There is some hypodensity within the left hypopharynx at the lev el of the hyoid bone measuring 1.5 x 0.7 cm. . This may be at the posterior left base of the tongue. This appears to be at the base of the epiglottis adjacent to the vallecula. This was not hyperintense on the PET/CT. No suspicious CT abnormality within the anterior tongue correlate with the PET/CT findings as evident . Some mild density change may be present better visualized on sagittal plane images. Thyroid as visualized is normal. Osseous structures are normal. IMPRESSIONS: 1. Suspected anterior tongue abnormality identified on PET/CT are not clearly evident on the CT exami nation. 2. Abnormal hypodensity at the level of the hyoid within the left hypopharynx is not a corresponding abnormality on the PET/CT.
== END | disposition home or self-care (01) ==
LOC: RADCTMAIN 14:01
PROVIDERS: ATTEND Otolaryngology
DX: C02.9 Malignant neoplasm of tongue, unspecified (principal); R91.1 Solitary pulmonary nodule; R93.7 Abnormal findings on diagnostic imaging of other parts of musculoskeletal system
CPT/HCPCS: 82565; 84520; 71046; 70491; 36415; Q9967

== ENCOUNTER → 2023-08-04 | Outpatient (CLI) | payer MEDICARE, OTHER ==
--- NOTE | 2023-08-08 12:57 | PE ---
EXAMINATION TYPE: PET CT fusion skull to thigh DATE OF EXAM: 08/04/2023 COMPARISON: CT soft tissue neck 11/25/2022 Prior PET/CT: PET/CT 11/19/2022 HISTORY: Malignant neoplasm of tongue TECHNIQUE: Following the intravenous administration of 11.55 mCi of F-18 FDG, whole body images are performed from the skull base to the midthigh. Images are reviewed on the computer in the coronal, a xial, and sagittal planes. Reconstructed rotating images are created on independent workstation and reviewed on the computer. A localization and attenuation correction CT is performed in conjunction with the PET scan. DLP: 308.09 mGycm SCAN: Subsequent Blood glucose: 85 mg/dL Average Mediastinum SUV: 2.02 Average Liver SUV: 1.83 FINDINGS: HEAD AND NECK: There is vague increased density through the left aspect of the tongue is slightly mor e focal anterior inferior left uptake near the apex of the jaw. Image 36, SUV 5.12. Findings can be c ompatible with the patient's reported tongue carcinoma NECK: Diffuse uptake along the lateral aspect of the left tongue better visualized on the whole-body images somewhat more intense lateral uptake is evident, example image 19 SUV 4.44 uptake near the ap ex corresponding to the head and neck images has an SUV of 4.7, image 23. THORAX: Uptake within the nodule posterior left upper lung pleural-based is present with an SUV of 1. 78, image 70. This is intermediate and other etiologies including inflammatory change should be consi dered. Early metastases cannot be excluded at this time. There is intense uptake within a pretracheal lymph node. Sample image 78, SUV 6.83. Note is made of some uptake within a right axillary lymph node, image 78, SUV 2.54. There appears to be some vague abnormal uptake within the lower thoracic spinal cord example image 12 3, SUV 1.7. Recommend MRI with contrast for additional evaluation at the thoracolumbar junction spur appears to be at the T12-L1 level ABDOMEN: No abnormal uptake PELVIS: No abnormal uptake OSSEOUS STRUCTURES: No abnormal uptake LOCALIZATION CT: Postsurgical changes are evident along the left neck with multiple surgical clips pr esent COMPARISON: Uptake along the posterior lateral left upper lung field, the mediastinum and within the spinal cord appear to be new findings are IMPRESSION: 1. Increasing uptake along the left aspect of the tongue extending towards the midline compatible wit h patient's reported tongue cancer. 2. New intense uptake within the mediastinum suspicious for mediastinal metastasis. 3. Pleural-based density posterior lateral left upper lung field with mild intermediate uptake. Infla mmatory change and early metastasis could be considered. 4. Abnormal uptake in the region of the thoracolumbar spine board approximately T12-L1 level. Recomme nd contrast MRI for additional evaluation. Metastasis is not excluded. 5. Mild uptake within the right axillary node, early metastasis should be considered
== END | disposition home or self-care (01) ==
LOC: RADPETMAIN 07:13
PROVIDERS: ATTEND Radiology Radiation Oncology
DX: C02.1 Malignant neoplasm of border of tongue (principal); J94.8 Other specified pleural conditions; Z90.49 Acquired absence of other specified parts of digestive tract
CPT/HCPCS: 78815; A9552

== ENCOUNTER 2023-10-17 11:08 | Day surgery (SDC) | payer MEDICARE, OTHER ==
[2023-10-12 09:03] VITALS: BMI 19.3
[~2023-10-17 11:08] MED LIST changes: -ACETAMINOPHEN TAB 500 MG TAB PO PRN; -HEPARIN SODIUM,PORCINE/PF 5,000 UNIT/0.5 ML SYRINGE SQ PRN; +LACTATED RINGERS 1,000 ML IV SCH; +LIDOCAINE 1% (10MG/ML) FOR IV START INTRADERMA PRN; +fentaNYL (PF) 50 MCG/ML 2 ML AMP IV PRN
[2023-10-17 12:17] VITALS: BP 153/65; PULSE 70; RESP 18; TEMP 98
== END 2023-10-17 12:19 | disposition home or self-care (01) ==
LOC: ORWHC2ENDO 11:08
PROVIDERS: ATTEND Internal Medicine Critical Care Medicine
DX: Z53.8 Procedure and treatment not carried out for other reasons (principal); R59.0 Localized enlarged lymph nodes

== ENCOUNTER 2023-10-26 11:14 | Day surgery (SDC) | payer MEDICARE, OTHER ==
[2023-10-25 10:37] VITALS: BMI 19.3
[2023-10-26] MEDS ORDERED: LACTATED RINGERS 1,000 ML IV SCH (11:48)
[2023-10-26] MEDS: IV FLUID CONTINUATION 1,000 ML IV ONE (12:06)
[2023-10-26] MEDS: LACTATED RINGERS 1,000 ML IV SCH (12:07)
[2023-10-26] MEDS ORDERED: LIDOCAINE 4% LTA KIT (4 ML) TOPICAL ONE (12:39)
[2023-10-26] MEDS ORDERED: SUCCINYLCHOLINE CHLORIDE 200 MG/10 ML VIAL IV ONE (12:39)
[2023-10-26] MEDS ORDERED: PROPOFOL 10 MG/ML 20 ML VIAL IV ONE (12:39)
--- NOTE | 2023-10-26 13:32 | P.PCN ---
Date of Procedure: 10/26/23 Operative Findings: Preop diagnosis: Tongue cancer, mediastinal lymphadenopathy Postop diagnosis, same Procedures flexible bronchoscopy and airway inspection Endobronchial ultrasound Endobronchial ultrasound-guided transbronchial needle aspirates of a paratracheal lymph node Procedure This procedure was done in the endoscopy suite. The patient was intubated and placed on mechanical ventilator and intubation process was done by NUCLEAR PHYSICIST. Following intubation, the flex bronchoscope was introduced through the orotracheal tube and airway inspection was done. The major distal trachea, bilateral mainstem bronchi, right upper lobe bronchus, bronchus and medius, right middle lobe and right lower lobe bronchus and the various stent segments on the right in addition to the left upper lobe bronchus and left lower lobe bronchus and the various 8 segments on the left were essentially within normal limits. No endobronchial tumors or lesions or abnormalities identified. Following that, the flexor bronchoscope was removed and endobronchial ultrasound was introduced. Examination today's presentation was done and a 1.8 cm right parotic lymph node was identified on the endobronchial ultrasound examination. Using a 22-gauge VISI shot needle, transbronchial needle aspirate of the paratracheal lymph node was done and a total of 5 passes were taken without any complications. The endobronchial ultrasound was removed. The flexor bronchoscope was introduced and therapeutic airway suctioning was done. No evidence of any acute bleeding. No complications. The bronchoscope was removed and the patient was extubated and transferred to recovery in stable condition. The patient will follow-up in the office to discuss results of the transbronchial needle aspirate. Will follow.
[2023-10-26 13:39] VITALS: TEMP 97.3
[2023-10-26 14:53] VITALS: BP 167/79; PULSE 82; RESP 18
== END 2023-10-26 14:58 | disposition home or self-care (01) ==
LOC: ORWHC2ENDO 11:14
PROVIDERS: ATTEND Internal Medicine Critical Care Medicine
DX: C02.9 Malignant neoplasm of tongue, unspecified (principal)
CPT/HCPCS: 88305; 88342; 88341; 31652; J0330; J2704

== ENCOUNTER → 2023-11-23 | Outpatient (CLI) | payer MEDICARE ==
--- NOTE | 2023-11-23 16:18 | MR ---
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 The patient was then given intravenous contrast and multi planar, T1 fat-saturation images wer e obtained. IV Contrast: 6 cc Gadavist FINDINGS: The william-white junctions, ventricular system, basal cisterns appear unremarkable. Diffusion-weighted imaging shows no evidence of restricted diffusion to suggest acute/subacute infarct. Intracranial ar terial flow voids are maintained. Midline structures show no abnormality. Scattered foci of high T2 s ignal intensity are seen within the periventricular white matter. The susceptibility weighted images do not reveal any evidence for micro-hemorrhage. After administration of gadolinium, no abnormal enha ncement is seen. The bone marrow signal is within normal limits. Paranasal sinuses and mastoid air cells: Mild scattered paranasal sinus disease. Visualized orbits: Bilateral aphakia Posttreatment changes of the tongue. No definitive mass visualized IMPRESSION: 1. No evidence for intra-axial metastatic disease No evidence of intracranial mass, acute/subacute in farct, or abnormal enhancement. 2. Nonspecific white matter changes, likely related to small vessel ischemic disease.
== END | disposition home or self-care (01) ==
LOC: RADMRIMAIN 14:25
PROVIDERS: ATTEND Radiology Radiation Oncology
DX: C02.1 Malignant neoplasm of border of tongue (principal); Z90.49 Acquired absence of other specified parts of digestive tract
CPT/HCPCS: 70553; A9585

== ENCOUNTER → 2023-12-02 | Outpatient (CLI) | payer MEDICARE, OTHER ==
--- NOTE | 2023-12-30 12:47 | PE ---
Patient: Raman Echavarria Ordering Physician: Unknown, Unknown ID: [id number] Phone, Pager: Phone: N /A Pager: N/A : [phone] Age/Gender: 68Y, M Primary Location: N/A Procedure: PETCT SKULL TO THIGH Study Date: 12/02/2023 1:30:17 PM EXAMINATION TYPE: PET CT fusion skull to thigh DATE OF EXAM: 12/13/2023 CLINICAL INDICATION: Head and neck cancer. TECHNIQUE: Following the intravenous administration of 10.57 mCi of F-18 FDG, whole body images are performed from the skull base to the midthigh. Images are reviewed on the computer in the coronal, axial, and sagittal planes. Reconstructed rotating images are created on independent workstation and reviewed on the computer. A non-contrast CT is performed in conjunction with the PET scan. Glucose level 102 mg/dL CT DLP: 374 mGycm, Automated exposure control for dose reduction was used. COMPARISON: CT None, PET/CT 08/04/2023, MRI: None FINDINGS: Mediastinal SUV mean is 1.1. Hepatic parenchyma SUV mean is 1.0. SKULL BASE AND NECK: Decrease in FDG activity in the tissue in the oropharynx. No suspicious uptake. No abnormal uptake within the neck in the surgical bed. CHEST, MEDIASTINUM, AND HILAR REGION: * Precarinal lymph node max SUV 7.6, previously 8.1. Now measuring 18 mm in short axis previously 15 . * Focus of uptake in the posterior aspect of the right hilum max is 53.1, previously 1.7. Unclear if this is in a bronchus or a developing nodule. ABDOMEN AND PELVIS: No suspicious radiotracer activity. MUSCULOSKELETAL STRUCTURES: * No suspicious radiotracer activity. * Diffuse uptake within the adipose tissue compatible with brown fat. OTHER CT: Atherosclerosis throughout the arterial vasculature multiple surgical clips in the left nec k. Paraseptal emphysema and centrilobular emphysema changes. Right middle lobe calcified granuloma. P rostatomegaly. IMPRESSION: 1. Positive response to therapy with decrease in FDG avid tissue within the oropharynx. No FDG avid tissue in the oropharynx. 2. The decreased FDG activity within the mediastinal precarinal soft tissue mass which may be mildly increased in size. 3. Right lower lobe posterior right perihilar focus of uptake possibly developing lung nodule versus in the bronchus. Attention follow-up imaging.
== END | disposition home or self-care (01) ==
LOC: RADPETMAIN 11:45
PROVIDERS: ATTEND Radiology Radiation Oncology
DX: C02.1 Malignant neoplasm of border of tongue (principal); C76.0 Malignant neoplasm of head, face and neck; Z90.49 Acquired absence of other specified parts of digestive tract
CPT/HCPCS: 78815; A9552

== ENCOUNTER → 2024-04-09 | Outpatient (CLI) | payer MEDICARE, OTHER ==
[2024-04-09 13:35] LABS: African American GFR (CKD) >90 (>60 ml/min/1.73 sqM); Blood Urea Nitrogen 11 mg/dL (9-20); Non-African American GFR(CKD) >90 (>60 ml/min/1.73 sqM)
--- NOTE | 2024-04-09 14:47 | CT ---
CT chest and abdomen. HISTORY: Tongue cancer COMPARISON: None. TECHNIQUE: Multiple axial images are obtained through the chest and abdomen following uneventful admi nistration of nonionic IV contrast material. FINDINGS: CT CHEST: There are mild emphysematous changes. There is no suspicious lung mass or nodule. There is an 8.7 mm calcified granuloma associated with th e right major fissure. There is no airspace consolidation or abnormal interstitial density There is no pleural effusion or pneumothorax. The great vessels chest are normal. The heart is not enlarged. Is no mediastinal, hilar or axillary adenopathy. No focal osseous lesions are seen. CT abdomen and pelvis: The gallbladder is contracted and otherwise normal. There is no focal mass or organomegaly involving the liver, pancreas, spleen, adrenal glands. There is no solid renal mass or hydronephrosis. There is no retroperitoneal adenopathy or hemorrhage. The bowel loops are normal in caliber. No free intraperitoneal air or fluid. No inflammatory changes are identified within the abdomen. Visualized osseous structures are intact. IMPRESSION: 1. No significant abnormality. 2. No evidence of metastatic disease within the chest or abdomen. [facility], , 04/09/2024 2:44 PM
== END | disposition home or self-care (01) ==
LOC: RADCTMAIN 12:20
PROVIDERS: ATTEND Internal Medicine
DX: C34.91 Malignant neoplasm of unspecified part of right bronchus or lung (principal); C02.8 Malignant neoplasm of overlapping sites of tongue; F41.1 Generalized anxiety disorder; F32.A Depression, unspecified
CPT/HCPCS: 82565; 84520; 71260; 74160; Q9967

== ENCOUNTER → 2024-08-01 | Outpatient (CLI) | payer MEDICARE ==
--- NOTE | 2024-08-04 21:30 | MR ---
EXAMINATION TYPE: MR brain wo/w con DATE OF EXAM: 08/01/2024 11:28 AM COMPARISON: None. CLINICAL INDICATION: Male, 69 years old with history of C77.1, Tongue and Lung cancer TECHNIQUE: Multiplanar, multiecho imaging on a 3.0 Brigette magnet is performed through the brain. Stud y is performed within 24 hours of arrival to the hospital.Multiplanar, multiecho imaging on a 3.0 Olimpia la magnet is performed through the knee. IV Contrast: 6 mL Gadobutrol (None, if empty) FINDINGS: The craniovertebral junction is normal. The pituitary is normal. Diffusion-weighted imaging is performed. No abnormal hyperintensity is present to suggest an acute i ntracranial infarct or acute ischemic change. There are scattered punctate areas of hyperintensity on T2 and Inversion Recovery weighted sequences which are non-specific but can be related to microvascular ischemic changes. Ventricles and sulci are appropriate for the patient age. No suspicious enhancement is evident. Mucosal thickening to the bilateral maxillary sinuses. Mastoid air cells are clear. Remaining paranas al sinuses appear clear. IMPRESSION: 1. Mild chronic appearing periventricular and deep white matter punctate white matter changes likely on the basis of chronic white matter ischemic change. 2. No suspicious changes to suggest intracranial metastasis. [facility], , 08/04/2024 9:27 PM
== END | disposition home or self-care (01) ==
LOC: RADMRIMAIN 10:24
PROVIDERS: ATTEND Radiology Radiation Oncology
DX: C77.1 Secondary and unspecified malignant neoplasm of intrathoracic lymph nodes (principal); C34.2 Malignant neoplasm of middle lobe, bronchus or lung; C02.1 Malignant neoplasm of border of tongue; Z90.49 Acquired absence of other specified parts of digestive tract
CPT/HCPCS: 70553; A9585